=== PATIENT | male | born 1935 | race Hispanic/Latino ===

== ENCOUNTER 2017-06-03 19:52 | Inpatient (IN) | payer MEDICARE, BC ==
[2017-06-03] MEDS ORDERED: TDAP Vaccine 0.5 mL Syr IM ONE (20:10)
--- NOTE | 2017-06-03 20:27 | ED PDOC ---
Arrival/HPI <Rogelio Biggs - Last Filed: 06/03/17 23:10> <Aislinn Galvez - Last Filed: 06/04/17 00:01> - General Chief Complaint: Trauma Time Seen by Provider: 06/03/17 19:54 - History of Present Illness Narrative History of Present Illness (Text): 06/03/17 20:20 CC: Fall at home PMD: Dr. Joy This patient is an 82yo M w/ a Past medical history of hypertension, hyperlipidemia, diabetes not on insulin, CAD s/p 2 stents 15 years ago who fell at home earlier today. He states he was bringing his newspapers to the curb, one of the papers fell beneath his feet which caused him to sleep down 3-4 stairs. He states he fell forward, caught himself with his left hand, hurt this thumb, and slid foward and hit his head as well. Denies any loss of consciousness. Denies any chest pain, palpitations, shortness of breath during incident. Remembers the entire event. Is ANOx3 GCS15 and appropriately answering questions. states he is at mental baseline and does not seem any different. Denies feeling sick before event. Denies fevers/chills, headache, chest pain, changes in vision, changes in speech, chest pain, shortness of breath, abdominal pain, Nausea, vomiting, diarrhea, dysuria/freq/urg, or lower extremity pain/swelling. Meds: Glipizide, simvastatin, losartan, aspirin 81mg Allergies: denies Surgeries: Stent placement 15 years ago; [facility] FamHx: non applicable Social: lives at home with , fully independent IADL and ADL, walks without walker, denies smoking/EtOH (Rogelio Biggs) Past Medical History - Infectious Disease Hx of Infectious Diseases: None - Cardiac Hx Cardiac Disorders: Yes Other/Comment: stents - Pulmonary Hx Respiratory Disorders: No - Neurological Hx Neurological Disorder: Yes Hx Transient Ischemic Attacks (TIA): Yes - HEENT Hx HEENT Disorder: No - Renal Hx Renal Disorder: No - Endocrine/Metabolic Hx Endocrine Disorders: Yes Hx Diabetes Mellitus Type 2: Yes - Hematological/Oncological Hx Blood Disorders: No - Integumentary Hx Dermatological Disorder: No - Musculoskeletal/Rheumatological Hx Musculoskeletal Disorders: No - Gastrointestinal Hx Gastrointestinal Disorders: No - Genitourinary/Gynecological Hx Genitourinary Disorders: No - Psychiatric Hx Psychophysiologic Disorder: No Hx Substance Use: No - Surgical History Other/Comment: prostate surgery,. cardiact sents - Anesthesia Hx Anesthesia: Yes Hx Anesthesia Reactions: No <Rogelio Biggs - Last Filed: 06/03/17 23:10> Family/Social History - Physician Review Nursing Documentation Reviewed: Yes Family/Social History: Diabetes, Hypertension, CAD/LA Smoking Status: Never Smoked Hx Alcohol Use: No Hx Substance Use: No <Rogelio Biggs - Last Filed: 06/03/17 23:10> Allergies/Home Meds <Rogelio Biggs - Last Filed: 06/03/17 23:10> <Aislinn Galvez - Last Filed: 06/04/17 00:01> Allergies/Adverse Reactions: Allergies No Known Allergies Allergy (Verified 06/03/17 19:57) Home Medications: Home Meds Medication Instructions Recorded Confirmed Aspirin [Adult Low Dose Aspirin EC] 81 mg PO DAILY 06/03/17 06/03/17 GlipiZIDE [Glucotrol] 2.5 mg PO DAILY 06/03/17 06/03/17 Metoprolol Succinate XL [Toprol XL] 50 mg PO DAILY 06/03/17 06/03/17 Simvastatin [Zocor] 40 mg PO DAILY 06/03/17 06/03/17 Valsartan [Diovan] 80 mg PO DAILY 06/03/17 06/03/17 Review of Systems - Review of Systems Constitutional: absent: Fatigue, Weight Change Eyes: absent: Vision Changes, Photophobia ENT: absent: Hearing Changes, Tinnitus Respiratory: absent: SOB, Cough Cardiovascular: absent: Chest Pain, Palpitations Gastrointestinal: absent: Abdominal Pain Genitourinary Male: absent: Dysuria, Frequency, Hematuria Musculoskeletal: absent: Arthralgias, Back Pain Skin: absent: Rash, Pruritis Neurological: Headache. absent: Dizziness, Focal Weakness, Gait Changes, Speech Changes, Facial Droop, Disequilibrium, Seizure Endocrine: absent: Diaphoresis Hemo/Lymphatic: absent: Adenopathy, Easy Bleeding Psychiatric: absent: Anxiety, Depression <Rogelio Biggs - Last Filed: 06/03/17 23:10> Physical Exam Temperature: Afebrile Blood Pressure: Normal Pulse: Regular Appearance: Positive for: Non-Toxic (patient has blood coming from head/nose, blood all over shirt from fall) Mental Status: Positive for: Alert and Oriented X 3 - Systems Exam Head: Present: Normocephalic, Abrasion (right above eye abrasion, no laceration) Pupils: Present: PERRL Extroacular Muscles: Present: EOMI. No: Gaze Palsy, Entrapment Conjunctiva: Present: Normal. No: Injected Mouth: Present: Moist Mucous Membranes. No: Dry Pharnyx: Present: Normal. No: ERYTHEMA, EXUDATE Nose (External): Present: Abrasion. No: Laceration Respiratory/Chest: Present: Clear to Auscultation, Good Air Exchange. No: Respiratory Distress, Accessory Muscle Use Cardiovascular: Present: Regular Rate and Rhythm, Normal S1, S2 Abdomen: Present: Normal Bowel Sounds. No: Tenderness, Distention, Peritoneal Signs Back: Present: Normal Inspection. No: CVA Tenderness Upper Extremity: Present: Normal Inspection. No: Cyanosis, Edema Lower Extremity: Present: Normal Inspection. No: Edema Neurological: Present: GCS=15, CN II-XII Intact, Speech Normal Skin: Present: Warm Psychiatric: Present: Alert, Oriented x 3, Normal Insight, Normal Concentration <Rogelio Biggs - Last Filed: 06/03/17 23:10> Vital Signs Temp Pulse Resp BP Pulse Ox 06/03/17 20:00 97.6 F 79 19 115/74 96 Medical Decision Making <Rogelio Biggs - Last Filed: 06/03/17 23:10> <Aislinn Galvez - Last Filed: 06/04/17 00:01> ED Course and Treatment: 06/03/17 20:31 DD; Subdural hematoma vs arrythmia vs LA vs mechanical fall Plan: Head CT, clean patient/bacitracin, ANDRAE, CBC, CMP, Mag/Phos, EKG Give Tdap EKG shows 2nd degree AV block w/ PVC interpreted by me; uknown baseline Peaked T waves Patient is resting comfortably with VSS 100% O2 Dispo and Reassess 06/03/17 20:33 Anemia 12.3 noted on CBC; no rectal bleeding; denies blood per rectum as well; no known hx of bleeding BUN elevated at 22 -enlarged heart on chest x-ray; however portable x-ray not the best to senior loan officer -no sign of infiltrate -troponin negative -CMP WNL 06/03/17 21:[address] shows: 1. Tiny foci of intracranial gas are identified, consistent with pneumocephalus. 2. There is soft tissue swelling/hematoma of the right frontal scalp and periorbital region. 3. Within the medial right frontal lobe, there is a 0.9 x 0.6 cm hyperdense focus of hemorrhage or contusion. A small additional contusion is seen within the inferior right frontal lobe. 4. There is a small focus of extra-axial hemorrhage within the anterior right temporal convexity. Minimal additional subdural hemorrhage is seen in this region. A follow-up CT in 12-24 hours is recommended. 5. There is a probable fracture of the greater wing of the right sphenoid bone. 6. Multiple foci of gas are seen within the facial soft tissues. Paranasal sinus disease is noted above. There is increased density within the bilateral maxillary sinuses, concerning for hemorrhage. There are probable fractures of the maxillary sinus berger. A facial CT is recommended. 7. There are scattered foci of hypodensity within the cerebral white matter, likely representing small vessel ischemic disease in a patient this age. 8. Atrophy. Will Call neurosurgery configuration release manager Dr. Cook Will call ENT for facial fractures Dr. Sampson Will call Neurology Dr. Escobar Negrete Will order maxillofacial CT to examine facial CT Dr. Bhakta evaluated the patient for admission to the ICU which he accepted 06/03/17 23:15 (Rogelio Biggs) Patient Seen With Resident: In agreement with resident note which contains more details about the patient. Patient was seen and evaluated with resident. Came up with plan and treatment together. (Aislinn Galvez) - Lab Interpretations Lab Results: 06/03/17 20:32 06/03/17 20:32 Lab Results 06/03/17 20:32: Sodium 136, Potassium 4.4, Chloride 102, Carbon Dioxide 25, Anion Gap 13, BUN 22 H, Creatinine 1.0, Est GFR ( Amer) > 60, Est GFR ( Non-Af Amer) > 60, Random Glucose 257 H, Calcium 8.8, Phosphorus 3.1, Magnesium 2.0, Total Bilirubin 0.6, AST 30, ALT 41, Alkaline Phosphatase 70, Total Creatine Kinase 79, Troponin I < 0.01, Total Protein 6.8, Albumin 3.8, Globulin 3.1, Albumin/Globulin Ratio 1.2 06/03/17 20:32: WBC 6.3, RBC 4.34, Hgb 12.6 L, Hct 37.9 L, MCV 87.3, MCH 29.0, MCHC 33.2, RDW 13.9, Plt Count 175, MPV 10.8, Gran % 59.8, Lymph % (Auto) 29.2, [place] % (Auto) 6.7 H, Eos % (Auto) 3.5, Baso % (Auto) 0.8, Gran # 3.74, Lymph # 1.8, [place] # 0.4, Eos # 0.2, Baso # 0.05 - RAD Interpretation Radiology Orders: 06/03/17 20:07 HEAD W/O CONTRAST [CT] Stat 06/03/17 20:27 CHEST PORTABLE [RAD] Stat 06/03/17 23:10 MAXILLOFACIAL W/O CONTRAST [CT] Stat 06/04/17 11:00 HEAD W/O CONTRAST [CT] Stat - Medication Orders Current Medication Orders: Discontinued Medications Bacitracin (Bacitracin) 1 ea TOP ONCE ONE Stop: 06/03/17 21:09 Tetanus/Reduced Diphtheria/Acell Pertussis (Boostrix Vaccine Inj) 0.5 ml IM .ONCE ONE Stop: 06/03/17 20:11 Last Admin: 06/03/17 20:22 Dose: 0.5 ml [facility] Immunization Data Document 06/03/17 20:22 OCS (Rec: 06/03/17 20:22 OCS [id number]) Immunization Data Vaccine Lot Number [id number] Vaccine Expiration Date 07/09/19 Site Given Left Deltoid Route Intramuscular NIHSS Scale ([place]) Time Performed: 20:31 - How Severe is the Stoke Baseline Level of Consciousness: 0=Alert LOC to Questions: 0=Both comments correct LOC to commands: 0=Obeys both correctly Best Gaze: 0=Normal Visual: 0=No visual loss Facial: 0=Normal Motor Arm - Left: 0=No drift Motor Arm - Right: 0=No drift Motor Leg - Left: 0=No drift Motor Leg - Right: 0=No drift Limb Ataxia: 0=Absent Sensory: 0=Normal Best Language: 0=No aphasia Dysarthia: 0=Normal articulation Extinction & Inattention (Neglect): 0=Normal, no object Score: 0 Risk Level: No Stroke Risk <Rogelio Biggs - Last Filed: 06/03/17 23:10> Disposition/Present on Arrival - Present on Arrival Any Indicators Present on Arrival: Yes History of DVT/PE: No History of Uncontrolled Diabetes: No Urinary Catheter: No History of Decub. Ulcer: No History Surgical Site Infection Following: None - Disposition Have Diagnosis and Disposition been Completed?: Yes Disposition Time: 23:17 Patient Plan: ICU <Rogelio Biggs - Last Filed: 06/03/17 23:10> - Present on Arrival Any Indicators Present on Arrival: No - Disposition Have Diagnosis and Disposition been Completed?: Yes <Aislinn Galvez - Last Filed: 06/04/17 00:01> - Disposition Diagnosis: Subdural hematoma Disposition: HOSPITALIZED Patient Problems: Current Active Problems Problem Status Onset Subdural hematoma Acute Condition: FAIR Referrals: Dion Joy MD [Primary Care Provider] - Follow up with primary Forms: [employer] (Greek)
[2017-06-03 20:46] LABS: BASO # 0.05 K/mm3 (0.0-2.0); BASO % 0.8 % (0.0-3.0); EOS # 0.2 (0.0-0.7); EOS % 3.5 % (1.5-5.0); GRAN # 3.74 (1.4-6.5); GRAN % 59.8 % (50.0-68.0); HEMATOCRIT 37.9 % (42.0-52.0); LYMPH # 1.8 (1.2-3.4); LYMPH % 29.2 % (22.0-35.0); MEAN CELL VOLUME 87.3 fl (80.0-105.0); MEAN CORPUSCULAR HGB CONC 33.2 g/dl (31.0-37.0); MEAN PLATELET VOLUME 10.8 fl (7.0-11.0); MONO # 0.4 (0.1-0.6); MONO % 6.7 % (1.0-6.0); RED CELL DISTRIBUTION WIDTH 13.9 % (11.5-14.5); WHITE BLOOD COUNT 6.3 10^3/ul (4.5-11.0)
[2017-06-03 20:51] LABS: ALB/GLOB RATIO 1.2 (1.1-1.8); ALKALINE PHOSPHATASE 70 U/L (38-126); ALT/SGPT 41 U/L (7-56); AST/SGOT 30 U/L (17-59); BILIRUBIN,TOTAL 0.6 mg/dL (0.2-1.3); BLOOD UREA NITROGEN 22 mg/dL (7-21); CALCIUM 8.8 mg/dL (8.4-10.5); CARBON DIOXIDE 25 mmol/L (21-33); GFR AFRICAN-AMERICAN > 60; GLUCOSE,RANDOM 257 mg/dL (70-110); PHOSPHOROUS 3.1 mg/dL (2.5-4.5); POTASSIUM 4.4 mmol/L (3.6-5.0); SODIUM 136 mmol/L (132-148); TOTAL PROTEIN 6.8 g/dL (5.8-8.3)
[2017-06-03 20:52] LABS: CHLORIDE 102 mmol/L (98-107)
[2017-06-03 21:02] LABS: TROPONIN I < 0.01 ng/mL
[2017-06-03] MEDS ORDERED: Bacitracin 500 Units/gm Oint Foilpak UD TOP ONE (21:08)
--- NOTE | 2017-06-03 22:59 | CT ---
EXAM: CT Head Without Intravenous Contrast EXAM DATE/TIME: 06/03/2017 8:07 PM CLINICAL HISTORY: The patient age is 82 years old and is male; Injury or trauma; Fall; Initial encounter; Concussion / head injury Facility exam id and description: Ct heads head w/o contrast TECHNIQUE: Axial computed tomography images of the head/brain without intravenous contrast. All CT scans at this facility use one or more dose reduction techniques, viz.: automated exposure control; ma/kV adjustment per patient size (including targeted exams where dose is matched to indication; i.e. head); or iterative reconstruction technique. COMPARISON: No relevant prior studies available. FINDINGS: Brain: Tiny foci of intracranial gas are identified, consistent with pneumocephalus. Within the medial right frontal lobe on series 2 image 30, there is a 0.9 x 0.6 cm hyperdense focus of hemorrhage or contusion. A small additional contusion is seen within the inferior right frontal lobe. There is a small focus of extra-axial hemorrhage within the anterior right temporal convexity. Minimal additional subdural hemorrhage is seen in this region. There are scattered foci of hypodensity within the cerebral white matter, likely representing small vessel ischemic disease in a patient this age. The acuity of the white matter disease is indeterminate. The white-kuo differentiation is preserved demonstrating no acute territorial type infarct. There are calcifications within the globus pallidus bilaterally, which are likely physiologic. There is prominence of the ventricles and sulci, compatible with atrophy. Midline shift: There is no midline shift. Ventricles: See above. Bones/joints: There is a probable fracture of the greater wing of the right sphenoid bone. Soft tissues: There is soft tissue swelling/hematoma of the right frontal scalp and periorbital region. Multiple foci of gas are seen within the facial soft tissues. Vasculature: There is atherosclerotic calcification of the cavernous internal carotid arteries and distal right vertebral artery. Sinuses: Air-fluid levels are identified within the bilateral maxillary sinuses, with fractures. There is opacification of the frontal sinuses left ethmoid air cells. Mucosal thickening is identified of right ethmoid air cells. Air-fluid levels are seen in the left sphenoid sinus. Mucosal thickening with a mucous retention cyst or polyp is visualized within the right sphenoid sinus. There is increased density within the bilateral maxillary sinuses, concerning for hemorrhage. Mastoid air cells: No mastoid effusion. IMPRESSION: 1. Tiny foci of intracranial gas are identified, consistent with pneumocephalus. 2. There is soft tissue swelling/hematoma of the right frontal scalp and periorbital region. 3. Within the medial right frontal lobe, there is a 0.9 x 0.6 cm hyperdense focus of hemorrhage or contusion. A small additional contusion is seen within the inferior right frontal lobe. 4. There is a small focus of extra-axial hemorrhage within the anterior right temporal convexity. Minimal additional subdural hemorrhage is seen in this region. A follow-up CT in 12-24 hours is recommended. 5. There is a probable fracture of the greater wing of the right sphenoid bone. 6. Multiple foci of gas are seen within the facial soft tissues. Paranasal sinus disease is noted above. There is increased density within the bilateral maxillary sinuses, concerning for hemorrhage. There are probable fractures of the maxillary sinus berger. A facial CT is recommended. 7. There are scattered foci of hypodensity within the cerebral white matter, likely representing small vessel ischemic disease in a patient this age. 8. Atrophy.
[2017-06-04 00:25] LABS: URINE BILIRUBIN NEGATIVE (NEGATIVE); URINE BLOOD TRACE-INTACT (NEGATIVE); URINE GLUCOSE (UA) >=1000 mg/dL (NEGATIVE); URINE KETONE TRACE mg/dL (NEGATIVE); URINE LEUKOCYTE ESTERASE NEGATIVE Leu/uL (NEGATIVE); URINE PROTEIN TRACE mg/dL (<30 mg/dL); URINE UROBILINOGEN 0.2 E.U./dL (<1 E.U./dL)
[2017-06-04 00:40] LABS: URINE APPEARANCE CLEAR (CLEAR); URINE COLOR STRAW (YELLOW)
[2017-06-04] MEDS ORDERED: Morphine 2 mg/ml ISec IVP STA (00:43)
[2017-06-04 00:54] LABS: URINE EPITHELIAL CELLS 0 - 2 /hpf (0-5); URINE RBC 0 - 2 /hpf (0-2); URINE WBC 0 - 2 /hpf (0-6)
--- NOTE | 2017-06-04 02:17 | CT ---
EXAM: CT Maxillofacial Without Intravenous Contrast EXAM DATE/TIME: 06/03/2017 11:10 PM CLINICAL HISTORY: The patient age is 82 years old and is male; Injury or trauma; Fall; Initial encounter; Concussion /head injury; Loss of consciousness not known; Additional info: Facial fractures Facility exam id and description: Ct faces maxillofacial w/o contrast TECHNIQUE: Axial computed tomography images of the face without intravenous contrast. All CT scans at this facility use one or more dose reduction techniques, viz.: automated exposure control; ma/kV adjustment per patient size (including targeted exams where dose is matched to indication; i.e. head); or iterative reconstruction technique. Coronal and sagittal reformatted images were created and reviewed. COMPARISON: CT - HEAD W/O CONTRAST 2017-06-03 21:58 FINDINGS: Bones/joints: Air-fluid levels are identified within the bilateral maxillary sinuses. There is increased density of the fluid, consistent with hemorrhage. Fractures are identified of the anterior, inferior, and posterior berger of the bilateral maxillary sinuses. There is a fracture of the superior right orbit with a probable small herniation of CSF fluid through this defect. There is a fracture of the right temporal bone, with a probable fracture of the greater wing of the right sphenoid bone. There is a small amount of extra-axial hemorrhage adjacent to this fracture. There is a fracture of the left anterior nasal bone, with angulation of the nasal bridge. Fractures are identified of the bilateral inferior orbital berger. There is abnormal morphology and suspected fractures of the lateral orbital berger as well. The remaining visualized facial bones are intact. Soft tissues: There is soft tissue swelling/hematoma of the right frontal scalp, as well as the preseptal and periorbital region. Small foci of gas are seen within the facial soft tissues. Orbits: A tiny focus of gas is identified within the right orbit. See above. Sinuses: A mucous retention cyst or polyp is visualized within the right sphenoid sinus, with mucosal thickening of the left sphenoid sinus. There is opacification of the left frontal sinus and left ethmoid air cells. Mucosal thickening is identified in the right ethmoid air cells. Brain: There is a hyperdense contusion again visualized within the inferior right frontal lobe of the brain. There is minimal pneumocephalus. Nasopharynx: There is nasal septal deviation to the right. IMPRESSION: 1. Air-fluid levels are identified within the bilateral maxillary sinuses, with hemorrhage. Fractures are identified of the anterior, inferior, and posterior berger of the bilateral maxillary sinuses. 2. There is a fracture of the superior right orbit with a probable small herniation of CSF fluid through this defect. 3. There is a fracture of the right temporal bone, with a probable fracture of the greater wing of the right sphenoid bone. There is a small amount of extra-axial hemorrhage adjacent to this fracture. There is minimal pneumocephalus. 4. There is a fracture of the left anterior nasal bone, with angulation of the nasal bridge. 5. There is a hyperdense contusion again visualized within the inferior right frontal lobe of the brain. 6. There is soft tissue swelling/hematoma of the right frontal scalp, as well as the preseptal and periorbital region. Small foci of gas are seen within the facial soft tissues. 7. Fractures are identified of the bilateral inferior orbital berger. There is abnormal morphology and suspected fractures of the lateral orbital berger as well. A tiny focus of gas is identified within the right orbit. 8. Paranasal sinus disease is noted above.
[2017-06-04] MEDS: Insulin Lispro (humaLOG) LOW Coverage SC SCH ×3 (02:22→09:52)
[2017-06-04] MEDS ORDERED: Cefepime IV 2 gm in NS 2 GM/100 ML BAG IVPB SCH (02:50)
[2017-06-04] MEDS ORDERED: Vancomycin 1.5 GM in Sodium Chloride 0.9% 500 ML IVPB SCH (02:51)
[2017-06-04 03:07] VITALS: BMI 23.3
[2017-06-04] MEDS ORDERED: Nicardipine 20 MG/200 ML 20 MG/200 ML BAG IV PRN (05:33)
--- NOTE | 2017-06-04 06:44 | CP.PCM.CON ---
<Jesus Quach - Last Filed: 06/04/17 06:19> History of Present Illness - History of Present Illness History of Present Illness: ICU consult note for Dr. Cisse Consulted for: ICH s/p traumatic fall HPI: This is an 82 yo M with PMH of hypertension, hyperlipidemia, diabetes (not on insulin), and CAD s/p 2 stents (15 years ago) who presents to [facility] [place]/p traumatic fall down concrete steps at home. HPI/ROS provided by patient , who is AAOx3 despite injuries. As per pt and , he was trying to bring his paper and plastic recycling to the curb, and a piece of paper flew out of the can and landed under one of his feet, causing him to slip and fall down the stairs and onto his concrete car pad. He is unsure of total time down, but did require help from and neighbors to get up after the fall. Remembers events prior to and after the fall with clarity. Admits to headache and nausea , denies actual emesis. Denies chest pain, shortness of breath, vision changes , room-spinning, cough, loss of bowel/bladder control. All other ROS in 12- point system review negative. Of note, maxulofacial CT and Head CT notable for 0.9x0.6cm hemorrhage in the right frontal lobe, and numerous fractures including R-orbital fracture with suspect CSF herniation. ED spoke with the neurosurgeon, who stated no intervention indicated from his standpoint. ENT aware of patient as well. PMH: as above PSH: Stent placement 15 years ago FamHx: non applicable Social: lives at home with , fully independent IADL and ADL, walks without walker, denies smoking/EtOH PMD: Dr. Joy Review of Systems - Review of Systems All systems: reviewed and no additional remarkable complaints except (as pre HPI ) Past Patient History - Infectious Disease Hx of Infectious Diseases: None - Past Social History Smoking Status: Never Smoked - CARDIAC Hx Cardiac Disorders: Yes Other/Comment: stents - PULMONARY Hx Respiratory Disorders: No - NEUROLOGICAL Hx Neurological Disorder: Yes Hx Transient Ischemic Attacks (TIA): Yes - HEENT Hx HEENT Problems: No - RENAL Hx Chronic Kidney Disease: No - ENDOCRINE/METABOLIC Hx Endocrine Disorders: Yes Hx Diabetes Mellitus Type 2: Yes - HEMATOLOGICAL/ONCOLOGICAL Hx Blood Disorders: No - INTEGUMENTARY Hx Dermatological Problems: No - MUSCULOSKELETAL/RHEUMATOLOGICAL Hx Musculoskeletal Disorders: No Hx Falls: Yes - GASTROINTESTINAL Hx Gastrointestinal Disorders: No - GENITOURINARY/GYNECOLOGICAL Hx Genitourinary Disorders: No - PSYCHIATRIC Hx Psychophysiologic Disorder: No - SURGICAL HISTORY Other/Comment: prostate surgery,. cardiact sents - ANESTHESIA Hx Anesthesia: Yes Hx Anesthesia Reactions: No Meds Allergies/Adverse Reactions: Allergies Allergy/AdvReac Type Severity Reaction Status Date / Time No Known Allergies Allergy Verified 06/03/17 19:57 - Medications Medications: Current Medications Aspirin (Ecotrin) 81 mg PO DAILY DIANA Atorvastatin Calcium (Lipitor) 20 mg PO DIN DIANA Hydralazine HCl (Apresoline) 10 mg IVP Q6 PRN PRN Reason: SBP > 150 Last Admin: 06/04/17 02:11 Dose: 10 mg Cefepime HCl (Maxipime 2gm) 2 gm in 100 mls @ 100 mls/hr IVPB Q12H DIANA PRN Reason: Protocol Stop: 06/09/17 02:51 Last Admin: 06/04/17 04:22 Dose: 100 mls/hr Vancomycin HCl 1.5 gm/ Sodium (Chloride) 500 mls @ 170 mls/hr IVPB Q12H DIANA PRN Reason: Protocol Last Admin: 06/04/17 04:22 Dose: 170 mls/hr Nicardipine HCl (Cardene Iv Premix) 20 mg in 200 mls @ 50 mls/hr IV .Q4H PRN; Protocol; 5 MG/HR PRN Reason: TITRATE PER MD ORDER Last Admin: 06/04/17 05:46 Dose: 5 mg/hr, 50 mls/hr Insulin Human Lispro (Humalog Low) 0 units SC Q4H DIANA PRN Reason: Protocol Last Admin: 06/04/17 04:36 Dose: 2 units Losartan Potassium (Cozaar) 50 mg PO DAILY DIANA Metoprolol Succinate (Toprol Xl) 50 mg PO DAILY DIANA Ondansetron HCl (Zofran Inj) 4 mg IVP Q4H PRN PRN Reason: Nausea/Vomiting Last Admin: 06/04/17 02:13 Dose: 4 mg Physical Exam - Constitutional Appears: Non-toxic, No Acute Distress, Other (multitude of bleeding abrassions across body) - Head Exam Head Exam: absent: ATRAUMATIC, NORMAL INSPECTION, NORMOCEPHALIC Additional comments: Abrasion, swollen R eyelid - Eye Exam Eye Exam: EOMI, Periorbital swelling (R eye), PERRL. absent: Conjunctival injection, Normal appearance, Nystagmus, Scleral icterus Pupil Exam: NORMAL ACCOMODATION, PERRL. absent: Irregular, Unequal - ENT Exam ENT Exam: Mucous Membranes Moist - Neck Exam Neck exam: Negative for: Lymphadenopathy, Thyromegaly - Respiratory Exam Respiratory Exam: Clear to Auscultation Bilateral, NORMAL BREATHING PATTERN. absent: Chest Wall Tenderness, Decreased Breath Sounds, Rales, Rhonchi, Wheezes - Cardiovascular Exam Cardiovascular Exam: REGULAR RHYTHM, RRR, +S1, +S2. absent: Bradycardia, Tachycardia, Irregular Rhythm, JVD, +S4 - GI/Abdominal Exam GI & Abdominal Exam: Normal Bowel Sounds, Soft. absent: Diminished Bowel Sounds , Distended, Firm, Guarding, Hyperactive Bowel Sounds, Hypoactive Bowel Sounds, Rigid - Extremities Exam Extremities exam: Positive for: normal capillary refill, pedal pulses present (+ 2 dorsalis pedis and radials bilaterally). Negative for: calf tenderness, pedal edema - Neurological Exam Neurological exam: Alert, CN II-XII Intact, Oriented x3 - Psychiatric Exam Psychiatric exam: Normal Affect, Normal Mood - Skin Skin Exam: Dry, Normal Color Results - Vital Signs Recent Vital Signs: Last Vital Signs Temp 9706 F H 06/04/17 02:24 Pulse 94 H 06/04/17 05:46 Resp 21 06/04/17 02:24 BP 147/67 06/04/17 05:46 Pulse Ox 96 06/03/17 20:00 - Labs Result Diagrams: 06/03/17 20:32 06/03/17 20:32 Labs: Laboratory Results - last 24 hr 06/04/17 02:20 POC Glucose (mg/dL) 302 H Assessment & Plan - Assessment and Plan (Free Text) Assessment: This is an 82 yo M with PMH of hypertension, hyperlipidemia, diabetes (not on insulin), and CAD s/p 2 stents (15 years ago) who presents to [facility] [place]/p traumatic fall down concrete steps at home. He is being admitted to ICU for close monitoring in setting of traumatic ICH from mechanical fall. Plan: Neuro: -AAOx3, following all commands -likely concussion from falls, but no clear neuro deficit -CT head notable for 0.9x0.6cm R frontal lobe hemorrhage, NTD as per Neurosurg -strict BP control (SBP 120-130) to prevent worsening bleed -Neuro (Dr. Negrete) consulted, appreciate all recs -ENT consulted for facial fractures -Neuro checks q1 x4, q2x4, then q4 -Meningitis ppx with Vanco and Cefepime due to orbital fx with possible CSF herniation Pulm: -Satting well on room air on 98% -lungs clear on auscultation -no need for supplemental O2 at this time Cardio -Hx cardiac stents 15 yrs prior -continue home cardiac meds, hold ASA due to ICH -Cardine drip for SBP control, HDS, not michelle or tachycardic GI: -NPO -Protonix for GI ppx Renal: -strict I's and O's -replete electrolyes as needed -avoid nephrotoxic drugs Heme: -hgb 12.6, f/u repeat CBC -avoid AC in setting of ICH, SCDs for DVT ID: -Meningitis ppx with Vanco and Cefepime due to orbital fx with possible CSF herniation Dispo: ICU for close monitoring given ICH, pending Neuro and ENT input FEN: NPO Access: Peripheral IV Consults: Neuro, ENT, Neurosurg Ppx: SCDs for DVT, Protonix for GI Patient seen, reviewed, and discussed with attending, Dr. Cisse. <Hunter Cisse Q - Last Filed: 06/04/17 07:02> Meds - Medications Medications: Current Medications Atorvastatin Calcium (Lipitor) 20 mg PO DIN DIANA Hydralazine HCl (Apresoline) 10 mg IVP Q6 PRN PRN Reason: SBP > 150 Last Admin: 06/04/17 02:11 Dose: 10 mg Cefepime HCl (Maxipime 2gm) 2 gm in 100 mls @ 100 mls/hr IVPB Q12H DIANA PRN Reason: Protocol Stop: 06/09/17 02:51 Last Admin: 06/04/17 04:22 Dose: 100 mls/hr Vancomycin HCl 1.5 gm/ Sodium (Chloride) 500 mls @ 170 mls/hr IVPB Q12H DIANA PRN Reason: Protocol Last Admin: 06/04/17 04:22 Dose: 170 mls/hr Nicardipine HCl (Cardene Iv Premix) 20 mg in 200 mls @ 50 mls/hr IV .Q4H PRN; Protocol; 5 MG/HR PRN Reason: TITRATE PER MD ORDER Last Admin: 06/04/17 05:46 Dose: 5 mg/hr, 50 mls/hr Insulin Human Lispro (Humalog Low) 0 units SC Q4H DIANA PRN Reason: Protocol Last Admin: 06/04/17 04:36 Dose: 2 units Losartan Potassium (Cozaar) 50 mg PO DAILY DIANA Metoprolol Succinate (Toprol Xl) 50 mg PO DAILY DIANA Ondansetron HCl (Zofran Inj) 4 mg IVP Q4H PRN PRN Reason: Nausea/Vomiting Last Admin: 06/04/17 02:13 Dose: 4 mg Results - Vital Signs Recent Vital Signs: Last Vital Signs Temp 9706 F H 06/04/17 02:24 Pulse 94 H 06/04/17 05:46 Resp 21 06/04/17 02:24 BP 147/67 06/04/17 05:46 Pulse Ox 96 06/03/17 20:00 - Labs Result Diagrams: 06/03/17 20:32 06/03/17 20:32 Labs: Laboratory Results - last 24 hr 06/04/17 02:20 POC Glucose (mg/dL) 302 H Attending/Attestation - Attestation I have personally seen and examined this patient.: Yes I have fully participated in the care of the patient.: Yes I have reviewed all pertinent clinical information: Yes Notes (Text): 06/04/17 06:59 I agree with the above note and exam by the medical pathology teacher with the addition/ exception of the followin82 y/o male with a PMHx CAD, Htn, DM, TIA (20yrs ago) presented to the ED after what appeared to be a mechanical slip and fall. Patient sustained multiple abrasions on his extremities along with a possible contusion vs intraparenchymal frontal lobe hemorrhage (no significant swelling/edema/mass effect or shift). He also has multiple orbital and maxillary fractures along with possible CSF herniation through the right orbital fracture. Neurosurgery contacted by the ED who reported there was no neurosurgical intervention required at this time. ENT consulted as well for extensive orbital/maxillary fractures. Pt started on empiric antibiotic prophylaxis with Vanco/Cefepime for CSF herniation. case discussed at length with Dr. Ahmadi in the ED as well as Dr. Dubon ( radiologist) all labs and images available to myself reviewed thus far total time of care: 40 minutes
--- NOTE | 2017-06-04 08:15 | RAD ---
HISTORY: fall COMPARISON: No prior. FINDINGS: LUNGS: No active pulmonary disease. PLEURA: No significant pleural effusion identified, no pneumothorax apparent. CARDIOVASCULAR: Normal. OSSEOUS STRUCTURES: No significant abnormalities. VISUALIZED UPPER ABDOMEN: Normal. OTHER FINDINGS: None. IMPRESSION: No active disease.
--- NOTE | 2017-06-04 09:34 | CT ---
PROCEDURE: CT HEAD WITHOUT CONTRAST. HISTORY: brain bleed COMPARISON: Head CT without contrast 06/07/2017. TECHNIQUE: Axial computed tomography images were obtained through the head/brain without intravenous contrast. Radiation dose: Total exam DLP = 678.13 mGy-cm. This CT exam was performed using one or more of the following dose reduction techniques: Automated exposure control, adjustment of the mA and/or kV according to patient size, and/or use of iterative reconstruction technique. FINDINGS: HEMORRHAGE: Small referral contusions are stable including 1 cm medial right frontal subcortical contusion and a separate 8 mm contusion at the right frontal lobe more lateral inferiorly with no additional intraparenchymal hemorrhage identified. There is no mass effect. BRAIN: Diffuse cerebral atrophy chronic microangiopathy are reiterated. No cortical edema in the interval. No suspicious extra-axial fluid collection. Sulci and cisterns appear normal throughout. Prior right middle cranial fossa pneumocephalus is diminished with trace residual adjacent to or fracture of the right temporal bone laterally. VENTRICLES: Unremarkable. No hydrocephalus. CALVARIUM: Unremarkable. PARANASAL SINUSES: Extensive bifrontal, by ethmoid and bimaxillary sinusitis again evident, minimally involving the left sphenoid sinus. MASTOID AIR CELLS: Unremarkable as visualized. No inflammatory changes. OTHER FINDINGS: None. IMPRESSION: Stable head CT with 2 right frontal contusions unchanged in volume remaining 1 cm or smaller in size as described above. No new intracranial hemorrhage. Right temporal bone fracture again appreciated nondisplaced which trace pneumocephalus related. Pneumocephalus is diminishing. Multifocal sinusitis again appreciated. Continued clinical and CT monitoring are advised. Findings discussed with Nurse Michel at the ICU 06/04/2017 9:20 a.m. with written down and read back verification.
[2017-06-04] MEDS: Metoprolol Succinate 50 mg XL Tab PO SCH (09:48)
--- NOTE | 2017-06-04 10:56 | CARD ---
APPROVED REPORT EKG Measurement Heart [id number] <Conclusion> Sinus rhythm with 1st degree AV block with premature supraventricular complexes Left axis deviation Voltage criteria for left ventricular hypertrophy
[2017-06-04] MEDS: Insulin Reg-HIGH-Coverage SC SCH ×6 (12:06→22:27)
--- NOTE | 2017-06-04 16:04 | CON ---
DATE: 06/04/2017 HISTORY OF PRESENT ILLNESS: This is an 82-year-old gentleman with history of hypertension, hyperlipidemia, diabetes, and coronary artery disease, status post 2 stents 15 years ago, who slipped and fell down concrete steps at home. The patient did not loose any consciousness; however, he hit his head very hard. He did require help to getup after the fall. He remembers events prior and after the fall with clarity. Some headaches and nausea reported. No vomiting. No chest pain. No shortness of breath. No vision changes. No cough. Head CT showed tiny foci of intracranial gas consistent with pneumocephalus, soft tissue swelling, and hematoma of the right frontal scalp and periorbital region. Within the medial right frontal lobe, there is 0.9 x 0.6 hyperdense focus of hemorrhage or contusion. Small additional contusion is seen within the inferior right frontal lobe. There is small focus of extra-axial hemorrhage within the anterior right temporal convexity. There is probable fracture of the greater wing of the right sphenoid bone, multiple foci of gas are seen within the facial soft tissues, and paranasal sinus disease is noted. There is increased density within the bilateral maxillary sinuses concerning for hemorrhage. There are probable fractures of the maxillary sinus berger. A facial CT was recommended and done. There are scattered foci of hypodensity within the cerebral white matter likely representing small vessel ischemic disease in a patient this age. Maxillofacial CAT scan showed air fluid levels within the bilateral maxillary sinuses with hemorrhage, fractures are identified of the anterior, inferior, and posterior berger of the bilateral maxillary sinuses. There is a fracture of the superior right orbit with a probable small herniation of CSF fluid through this defect. There is a fracture of the right temporal bone with a probable fracture of the greater wing of the right sphenoid bone. There is small amount of extra-axial hemorrhage adjacent to the fracture. There is minimal pneumocephalus. There is a fracture of the left anterior nasal bone with angulation of the nasal bridge. There is a hyperdense contusion again visualized within the inferior right frontal lobe of the brain. There is soft tissue swelling, hematoma of the right frontal skull as well as preseptal and periorbital regions. Small foci of gas are seen within the facial soft tissues. Fractures are identified of the bilateral inferior orbital berger. There is abnormal morphology and suspected fractures of the lateral orbital berger as well. A tiny focus of gas is identified within the right orbit. Paranasal sinus disease is noted. Chest x-ray showed no active pulmonary disease, no rib fractures. PAST MEDICAL HISTORY: Hypertension, hyperlipidemia, diabetes; not insulin-dependent, and coronary artery disease. PAST SURGICAL HISTORY: Stent placed 15 years ago. FAMILY HISTORY: Noncontributory. SOCIAL HISTORY: No alcohol or illicit drug abuse. No tobacco smoking. REVIEW OF SYSTEMS: Review of 12-organ systems other than mentioned in the history of present illness is negative. PHYSICAL EXAMINATION: VITAL SIGNS: Blood pressure 126/52, heart rate 104, oxygen saturation 96% on room air, and respiratory rate 15. HEENT: There is ecchymosis bilaterally around both eyes. There is scalp hematoma on the right side. No tracheal deviation. Nasal fracture corresponding to significant findings. HEART: Regular rate and rhythm. S1 and S2 normal. LUNGS: Clear to auscultation bilaterally. No tenderness on palpation. ABDOMEN: Soft, nontender, and nondistended. MUSCULOSKELETAL: No C/C/E. NEUROLOGIC: The patient moves all extremities spontaneously. Motor strength 5/5 in both upper and lower extremities symmetrically. There is no sensory deficit on gross evaluation. There is no sensory deficit in the face area. The patient is able to smile without asymmetry. The patient is able to shrug his shoulders without problem as well. Pupils equally reactive to light and accommodation. There is no limitation of visual jones on gross examination. The patient is able to raise his brows and close and opens his eyes without problem. SKIN: Moist. PSYCHIATRIC: The is alert and oriented x3. The patient is comfortable, not in respiratory or otherwise distress. LABORATORY DATA: WBC is 6.3, hemoglobin 12.6, and platelet count 175. Sodium 136, potassium 4.4, chloride 102, carbon dioxide 25, BUN 22, creatinine 1, and glucose 307. AST 30 and ALT 41. Troponin less than 0.1. MEDICATIONS: Lipitor, hydralazine p.r.n., regular insulin sliding scale, low protocol, Cozaar, cefepime, metoprolol, Cardene drip, Zofran p.r.n., and vancomycin. ASSESSMENT AND PLAN: This is an 82-year-old gentleman with multiple fractures of the facial bones, brain contusion, and scalp hematoma. At present time, neurosurgical evaluation is appreciated. Repeated CT-->no changes ; d/w Dr. Ortiz (at bedside)--no Nsx intervention ENT and Ophthalmology consults are pending. Spoke with dr. Ellis (ophthalmo) notified about emergent consult. The visual acuity and visual jones does not appear to be affected at the present time. The patient is hemodynamically and respiratory sorto stable. He is able to protect his airways. He is not in respiratory or otherwise distress. His pain is well controlled. We will continue target euvolemia, euglycemia, normothermia, and oxygen saturations more than 90%. We will continue with deep venous thrombosis and gastrointestinal prophylaxis. Addendum: ENT consult: no immediate intervention. ccm time 40 min Tyler Kimble MD SALTY
--- NOTE | 2017-06-04 20:18 | CON ---
NEUROLOGY CONSULTATION DATE: REASON FOR CONSULTATION: Brain bleed. HISTORY OF PRESENT ILLNESS: The patient is an 82-year-old male, who has been asked for evaluation of brain hemorrhage. The patient states that he was bringing his newspapers to the curb; one of the papers fell beneath his feet and he slipped and fell 3 to 4 stairs. He did hit his head. He was not sure if he lost consciousness or not. He denies any focal weakness in arms or legs. He does remember hitting his head. He denies any focal weakness or numbness. He denies any urinary or bowel symptoms. Does complain of mild headache. REVIEW OF SYSTEMS: Positive for headache. He denies any dizziness, chest pain, shortness of breath, abdominal pain, constipation, diarrhea, dysuria, cough, sputum production. PAST MEDICAL HISTORY: Includes hypertension, hypercholesterolemia, diabetes mellitus, coronary artery disease. MEDICATIONS AT HOME: Include glipizide, simvastatin, losartan, and aspirin. ALLERGIES: NO KNOWN DRUG ALLERGIES. SOCIAL HISTORY: Denies smoking, use of alcohol or illicit drugs. FAMILY HISTORY: Reviewed and noncontributory to the case. PHYSICAL EXAMINATION: GENERAL: The patient is an elderly male, lying on the bed, in no acute distress. VITAL SIGNS: His blood pressure is 112/54, heart rate is 98 per minute, breathing at the rate of 16 per minute and temperature is 96 degree Fahrenheit. HEENT: Normocephalic. Positive periorbital ecchymosis noted bilaterally. NECK: Supple. There are no carotid bruits. LUNGS: Clear. CARDIOVASCULAR: S1 and S2, audible. No murmurs. ABDOMEN: Soft and nontender. Bowel sounds are present. NEUROLOGY EXAMINATION: Mental status. The patient is awake, alert and oriented to time, place and person. Speech is fluent. Naming and repetition is normal. Memory and cognition are intact. Cranial Nerve Examination: Pupils are 3 mm bilaterally, reactive to light. Visual jones are full. Extraocular movements are intact. There is no facial asymmetry. Motor Examination: Tone is normal. Power is 5/5 bilaterally in all extremities. Reflexes +1 and symmetrical. Plantars downgoing bilaterally. Gait is deferred at the moment. SKIN: Positive abrasions noted on the right knee as well as in the hands. LABORATORY DATA: Reviewed, shows WBC of 6.3, hemoglobin 12.6, hematocrit 37.9, and platelets of 175. Sodium is 136, potassium 4.4, chloride 102, carbon dioxide content of 25, BUN of 22, creatinine 1.0, and glucose of 275. He had a CT scan of the head done, which showed tiny focal intracranial gas are identified consistent with pneumocephalus. There is soft tissue swelling and hematoma of the right frontal scalp and periorbital region. Within the medial right frontal lobe, there is a 0.9 x 0.6 cm hyperdense focus of hemorrhage or contusion. Small additional contusion is seen within the inferior right frontal lobe. There is a small focus of extraaxial hemorrhage within the anterior right temporal convexity, minimal additional subdural hemorrhage is seen in the region. Probable fracture of the greater wing of the right sphenoid bone. Multiple foci of gas are seen within the focal soft tissue. The patient had a repeat CT scan of the head done today, which showed stable head CT with two right frontal contusion with unchanged volume, remaining 1 cm or smaller in size. No new intracranial hemorrhage. Right temporal bone fracture again appreciated, nondisplaced with trace pneumocephalus. Pneumocephalus is diminishing. The patient had a maxillofacial CT done, which showed air fluid levels within the bilateral maxillary sinuses with hemorrhage. Fracture of the superior right orbit with a probable small herniation CSF fluid through this defect, fracture of the right temporal bone, fracture of the left anterior nasal bone. IMPRESSION: Status post fall with head trauma causing brain contusions as well as basal skull fracture and orbital fracture. RECOMMENDATIONS: 1. The patient had a repeat CT scan, which seems to be stable. There is no increase in the size of the small brain contusion. 2. The patient to have an electroencephalogram. 3. The patient to be evaluated by ophthalmology as well as ENT or maxillofacial surgery. 4. The patient to get out of bed and start physical therapy as he tolerates. 5. Please continue other treatment and supportive care. Thank you for the opportunity to participate in the care of this patient. Escobar Negrete MD
--- NOTE | 2017-06-04 20:46 | HP ---
HISTORY OF PRESENT ILLNESS: This is an 82-year-old male who is coming into the hospital with the past medical history of hypertension, dyslipidemia, diabetes diet controlled, coronary artery disease, who had a fall. The patient states that he was taking garbage out and one of the papers fell beneath his feet causing him to slip then he fell down three to four stairs. He had caught himself with his left hand, while he was falling and he said he did hit his head. The patient said he did not lose any consciousness. He is awake and alert. He is aware of his surroundings. He knows where he is, he is knows the date, and the time. The patient says he does not have any headaches. His vision is normal. He does have some pain around the right side of his facial bone and his cheek. No abdominal pain or back pain. No dysuria or frequency. No weakness in the arms or legs. REVIEW OF SYSTEMS: All other review of symptoms are within normal limits except as mentioned. ALLERGIES: NO KNOWN DRUG ALLERGIES. HOME MEDICATIONS: Glipizide, simvastatin, losartan, and aspirin. PAST SURGICAL HISTORY: He had stents done by Dr. Nelson. FAMILY HISTORY: Noncontributory. SOCIAL HISTORY: He lives with his , he is fully independent. Denies any smoking or alcohol. PHYSICAL EXAMINATION VITAL SIGNS: He has a temperature of 97.8, pulse of 88, blood pressure 162/76 repeat is 147/67, respirations 21, O2 saturation is 98%, height 5 feet 11 inches, weight 167 pounds, and BMI is 23.4. GENERAL: The patient lying in bed, uncomfortable, and in no acute distress. HEENT: Atraumatic and normocephalic. There is trauma to the right greater than left orbital areas. There is ecchymosis. Anicteric sclerae. Moist mucosa. Earl conjunctivae. No oral lesions. NECK: No JVD, anterior and posterior adenopathy, thyromegaly, or bruits. CARDIOVASCULAR: S1 and S2 regular. No murmur, rubs, or gallop. LUNGS: Clear to auscultation bilaterally. No wheezes, rales, or rhonchi. ABDOMEN: Bowel sounds are positive. Soft, nontender and nondistended. No hepatosplenomegaly. No rebound and no guarding EXTREMITIES: No cyanosis, clubbing, or edema. NEUROLOGIC: No facial asymmetry. Tongue is midline. No uvula deviation. Power is 5/5 upper extremity and lower extremity. Sensation intact in upper extremity and lower extremity. PSYCHIATRIC: He is awake, alert and oriented x3. No anxiety or depression. He has normal affect. GENITOURINARY: No CVA tenderness. VASCULAR: 2+ pulses in the carotid pulses and pedal pulses. SKIN: No erythema or nodules. SPINE: Shows normal curvature. LABORATORY DATA: White count of 6.3, hemoglobin is 12.6. Chemistry showed a sodium of 136, potassium 4.4, troponin is 0.01. Urine shows ketones of trace, blood is trace, and nitrites are negative. CT of the head was reviewed. There are multiple abnormalities that are seen. The patient has swelling, hematoma of the right frontal scalp. There is hyperdense focus of hemorrhage or contusion, 0.9 x 0.6 cm. There is a probable fascia on the greater wing of the right sphenoid bone. Chest x-ray done shows no active disease. CT of the maxillofacial bone without contrast. Shows there is a fracture of the superior orbit with a probable small herniation of CSF fluid through this defect. There is a fracture of the left anterior nasal bone. Repeat CT does shows stable head CT with two right frontal contusion with unchanged in volume, and remaining 1 cm or smaller. There is multifocal sinusitis again appreciated. ASSESSMENT: 1. Fall. 2. Fracture of the right temporal bone. 3. Fracture of the right sphenoid bone. 4. Fracture of the left anterior nasal bone. 5. Right frontal scalp hematoma. 6. Coronary artery disease with stents. 7. Dyslipidemia. 8. Hypertension. 9. Diabetes type II. PLAN: The patient is admitted to the ICU. He has a significant fall. The patient had no loss of consciousness. He is going to need further evaluation by Ophthalmology, ENT, and Neurosurgery. We will also get Dr. Dennis, Neurology to evaluate the patient. The patient is going to be on Lipitor for dyslipidemia, is going to be on nicardipine for his hypertension. The patient is on Zofran as needed. He is on losartan for his hypertension as well. His aspirin will be placed on hold. He is going to continue with his metoprolol for his coronary artery disease. An MRI has been ordered. The patient currently does not have any significant pain. We will continue to follow closely. Eddie Cavanaugh MD
[2017-06-04] MEDS: Amoxicillin-Clav 875-125 mg Tab PO SCH (22:16)
[2017-06-05] MEDS: Insulin Reg-HIGH-Coverage SC SCH ×8 (02:45→22:43)
--- NOTE | 2017-06-05 04:48 | EEG ---
DATE: INTRODUCTION: This is a digitally recorded EEG monitoring using standard EEG montages. BACKGROUND RHYTHM: The EEG shows a background activity of 8 Hz alpha activity in parietooccipital region. The EEG activity is bilaterally symmetrical and synchronous. There is attenuation of the background activity on eye opening. Small amount of myogenic artifact notice from this EEG recording. ABNORMAL POTENTIALS: No spike, sharp waves or focal slowing was seen. PHOTIC STIMULATION AND HYPERVENTILATION: Photic stimulation did not reveal any abnormality. Hyperventilation was not performed. IMPRESSION: Normal electroencephalogram. No epileptic form activity seen in this electroencephalogram recording. Escobar Negrete MD
[2017-06-05] MEDS: Tropicamide 1% Opht SOLUTION OU SCH ×3 (05:46→07:55)
--- NOTE | 2017-06-05 07:18 | CON ---
DATE: 06/04/2017 EAR, NOSE, AND THROAT SERVICE CONSULTATION REASON FOR CONSULTATION: Multiple facial fractures. HISTORY OF PRESENT ILLNESS: The patient is an 82-year-old male with past medical history of hyperlipidemia, coronary artery disease, status post multiple stents and diabetes. Last night, he was carrying a stack of papers down his stairs when he tripped and had a mechanical fall. He struck the right side of his face on the concrete diamond during his fall. He was subsequently brought to [facility] where a CAT scan demonstrated multiple facial and right temporal bone fractures. Therefore, Ear, Nose and Throat Service was consulted for further evaluation. Upon questioning, patient denies other episodes of acute falls. He denies any diplopia or ophthalmoplegia. He denies any clear drainage from his ear or nose. He denies any epistaxis. Denies any changes in his nasal airway. Denies any changes in vision or hearing. He is able to move his face well, and otherwise, has no other ear, nose, throat complaints at this time. PAST MEDICAL HISTORY: As above. PAST SURGICAL HISTORY: Significant for prostatectomy and cholecystectomy. ALLERGIES: NO KNOWN DRUG ALLERGIES. PHYSICAL EXAMINATION: VITAL SIGNS: Blood pressure 130/70, heart rate 70, and saturating 99% on room air. GENERAL: The patient is awake and alert. He is oriented x3. He is in no acute distress. HEAD: There are abrasions to the right temporal and right frontal region which are covered with a dressing and Bacitracin ointment. There is ecchymosis to the right periorbital tissues. FACE: There are no bony step-offs at the infraorbital rim. There is a left nasal bone deviation. sensation is intact bilaterally. Zygomas are without bony step-offs bilaterally. Eyes; extraocular muscles are intact bilaterally. No entrapment noted on examination. Pupils are equal, round, and reactive to light. Visual field testing grossly normal. NOSE: No septal hematoma noted. Left septal deviation noted. EARS: Left ear external auricle within normal appearance. Right ear, no Hughes sign. No auricular hematoma. External auditory canal clear. No middle ear effusion or hematoma seen. Normal hearing to finger rub. ORAL CAVITY: No intraoral lacerations. No rocking of hard palate. Moist mucous membranes. NECK: Trachea midline. No stridor. IMAGING: CAT scan reviewed; CAT scan report as follows. IMPRESSION: 1. Air-fluid levels are identified within the bilateral maxillary sinuses with hemorrhage. Fracture is identified in anterior, inferior, and posterior berger of the bilateral maxillary sinuses. 2. There is a fracture of the superior right orbit with a probable small herniation of CSF fluid with defect. 3. There is a fracture of the right temporal bone with a probable fracture of greater wing of the right sphenoid. There is small amount of extra-axial hemorrhage adjacent to this fracture. There is minimal . 4. There is a fracture of the left anterior nasal bone with angulation of the nasal bridge. 5. There is a hyperdense contusion again visualized within the inferior right frontal lobe of the brain. 6. There is soft tissue swelling, hematoma of the right frontal scalp as well as preseptal and periorbital region. Small foci of gas were seen within the patient's soft tissues. 7. Fractures identified of the bilateral inferior orbital berger. There is abnormal morphology and suspected fracture of the lateral orbital berger as well. Tiny foci of gases identified within the right orbit. 8. Paranasal sinus diseases as noted above. ASSESSMENT AND PLAN: The patient is an 82-year-old male with multiple facial fractures as well as right temporal bone fracture secondary to mechanical fall. I recommend both neurosurgical and ophthalmology consultations for the listed fractures. No signs of increased globe pressure on palpation. Vision is currently normal in the right eye; however, due to on the CT finding of right superior orbital fracture with possible CSF leak, would recommend Ophthalmologic consultation and possible referral to oculoplastics if necessary. I would recommend Neurosurgical consultation for followup of temporal extra-axial hemorrhage and pneumocephalus. No entrapment noted on examination and the orbital floor fractures did not appear to involve more than 50% of the orbital floor; therefore, no surgical intervention is indicated at this time. I discussed with the patient and his family that should he develop an ophthalmo or visual complaints, he should be reevaluated for potential orbital floor fracture repair. The patient states his nasal bone fracture has been longstanding and is not acute in nature. The patient has no hearing or facial nerve deficits from the fall. Facial nerve testing was normal on physical examination. Should the patient develop any hearing or facial movement complaints, he should have reevaluation by maternity floor supervisor. I recommend antibiotic coverage due to the multiple facial fractures and some possibility for intracerebral communication. This was discussed in detail with the patient and his and daughter at the bedside, who are understanding the above plan. This was also discussed in depth with intensive care unit team who will follow up with the appropriate consultations. Thank you for allowing us to participate in this patient's care. Nacho Alexander DO
[2017-06-05 07:40] LABS: BASO # 0.03 K/mm3 (0.0-2.0); BASO % 0.4 % (0.0-3.0); EOS # 0.1 (0.0-0.7); EOS % 0.7 % (1.5-5.0); GRAN # 6.03 (1.4-6.5); GRAN % 73.7 % (50.0-68.0); HEMATOCRIT 37.5 % (42.0-52.0); LYMPH # 1.3 (1.2-3.4); LYMPH % 16.4 % (22.0-35.0); MEAN CELL VOLUME 85.8 fl (80.0-105.0); MEAN CORPUSCULAR HEMOGLOBIN 28.8 pg (25.0-35.0); MEAN CORPUSCULAR HGB CONC 33.6 g/dl (31.0-37.0); MEAN PLATELET VOLUME 10.3 fl (7.0-11.0); MONO # 0.7 (0.1-0.6); MONO % 8.8 % (1.0-6.0); RED CELL DISTRIBUTION WIDTH 14.1 % (11.5-14.5); WHITE BLOOD COUNT 8.2 10^3/ul (4.5-11.0)
[2017-06-05 07:49] LABS: ALB/GLOB RATIO 1.2 (1.1-1.8); ALKALINE PHOSPHATASE 69 U/L (38-126); ALT/SGPT 36 U/L (7-56); AST/SGOT 27 U/L (17-59); BILIRUBIN,TOTAL 1.1 mg/dL (0.2-1.3); BLOOD UREA NITROGEN 27 mg/dL (7-21); CALCIUM 9.1 mg/dL (8.4-10.5); CARBON DIOXIDE 25 mmol/L (21-33); CHLORIDE 103 mmol/L (98-107); GFR AFRICAN-AMERICAN > 60; GLUCOSE,RANDOM 194 mg/dL (70-110); POTASSIUM 4.1 mmol/L (3.6-5.0); SODIUM 137 mmol/L (132-148); TOTAL PROTEIN 6.7 g/dL (5.8-8.3)
[2017-06-05] MEDS: Phenylephrine 10% Opht (5 ml) OU SCH ×2 (07:56→07:57)
--- NOTE | 2017-06-05 08:16 | CON ---
DATE: 06/04/2017 HISTORY OF PRESENT ILLNESS: An 82-year-old white male, history of hypertension and hyperlipidemia, non-insulin diabetic, cardiac artery disease, two stents, had a fall down concrete steps at home. Had no loss of consciousness. Arrived to the emergency room, awake, alert and oriented. He did not have syncopal episode. He slept. No other complaints at this time. He had a CT of the head in the emergency room last night showing two small right frontal contusions. Few dots of intracranial air on the right side. A repeat CT this morning showing that the air appears to be gone. There is stable size hemorrhages in the right frontal lobe with no change from last night. SOCIAL HISTORY: He lives at home with his . He does not smoke or drink. REVIEW OF SYSTEMS: Noncontributory. Reviewed from the chart. PHYSICAL EXAMINATION: He seems fine and fully awake, alert and oriented, cooperative. Cranial nerves are intact. He has multiple bruises and ecchymoses around his face and eyes. His pupils are equal. His EOMs are full. His face is symmetric. He has good strength. No sensory deficits. No reflex changes. His tongue is midline. IMPRESSION: At this point, my diagnosis and impression is traumatic intracranial hemorrhage, stable. PLAN: At this point, there is no indication for any neurosurgical intervention. He may be transferred from the ICU at any time. Observed for 24 more hours. If there is no change, he may be discharged. If there is any change in his neurologic status, please feel free to consult. Gustavo Cook MD
--- NOTE | 2017-06-05 08:25 | PN ---
DATE: 06/05/2017 SUBJECTIVE: The patient has no complaints of any chest pain or shortness of breath. No headaches or dizziness. PHYSICAL EXAMINATION VITAL SIGNS: Temperature is 97.3, pulse of 64, blood pressure 120/51. HEENT: Right bilateral ecchymotic areas, right-sided orbital area with periorbital edema. GENERAL: The patient is lying in bed, flat, comfortable. HEENT: No oral lesion. Anicteric sclerae. Moist mucosa. NECK: No JVD, adenopathy, or thyromegaly. CARDIOVASCULAR: S1 and S2, regular. No murmurs, rubs, or gallops. LUNGS: Clear to auscultation bilaterally. No wheeze, rales, or rhonchi. ABDOMEN: Bowel sounds are positive, soft, nontender and nondistended. EXTREMITIES: No cyanosis, clubbing or edema. LABORATORY DATA: No new labs. Repeat CT of the head done shows stable head CT with two frontal contusions is unchanged in volume, remaining 1 cm or smaller, right temporal bone fracture. ASSESSMENT: 1. Right temporal bone fracture. 2. Maxillary sinus fracture, bilateral. 3. Superior right orbit fracture with small herniation of cerebrospinal fluid. 4. Fracture of the left anterior nasal bone. 5. Right frontal hematoma. 6. Fracture of bilateral inferior orbital berger. 7. Coronary artery disease with stent. 8. Dyslipidemia. 9. Hypertension. 10. Diabetes type 2. PLAN: The patient is currently comfortable. He does not complain of any headaches. He said he was able to sleep well yesterday. The patient's facial nerve testing was normal. No facial asymmetry. Tongue is midline. On exam, the patient was seen by ENT and Neurology. I appreciate their input. The patient is on antibiotics with Augmentin. He is on Lipitor for dyslipidemia. The patient is receiving Toprol for his coronary artery disease. An MRI has been ordered. We will get repeat blood work. Eddie Cavanaugh MD
--- NOTE | 2017-06-05 08:38 | CON ---
DATE: HISTORY OF PRESENT ILLNESS: Mr. Rodriguez is an 82-year-old white male admitted to [facility] with orbital fracture. PHYSICAL EXAMINATION: Both eyes show mild cataracts. Extraocular movement is normal. There is slight enophthalmos in the right eye. Fundus exam is normal. ASSESSMENT AND PLAN: My assessment is that Mr. Rodriguez has slight enophthalmos and orbital fracture. He should be evaluated by oculoplastic for possible repair of orbital fracture. Paulo Lowe MD
[2017-06-05] MEDS: Amoxicillin-Clav 875-125 mg Tab PO SCH ×2 (09:22→21:04)
[2017-06-05] MEDS: Metoprolol Succinate 50 mg XL Tab PO SCH (09:23)
[2017-06-05] MEDS ORDERED: Bacitracin 500 Units/gm Oint Foilpak UD ONE (10:36)
[2017-06-05] MEDS ORDERED: Bacitracin Ointment 30 GM TUBE TOP SCH (10:45)
--- NOTE | 2017-06-05 11:14 | CP.CCUPN ---
<Shola Doherty - Last Filed: 06/05/17 11:27> CCU Subjective - Physician Review Subjective (Free Text): Patient seen and examined at bedside. Resting comfortably in bed. No acute overnight events. Patient states headache has improved relative to baseline. Offers no new complaints at this time. Admits to nausea and one bout of nonbloody nonbilious emesis. Denies fever, chills, chest pain, shortness of breath, abdominal pain, diarrhea, constipation, and urinary symptoms. 06/05/17 11:11 CCU Objective - Vital Signs / Intake & Output Vital Signs (Last 4 hours): Vital Signs Pulse Resp Pulse Ox 06/05/17 09:00 67 20 95 06/05/17 08:56 55 L 06/05/17 08:50 54 L 17 100 06/05/17 08:40 48 L 38 H 99 06/05/17 08:30 48 L 18 97 06/05/17 08:20 55 L 20 98 06/05/17 08:10 59 L 19 98 06/05/17 08:00 75 39 H 82 L 06/05/17 07:50 63 30 H 97 06/05/17 07:40 61 17 98 06/05/17 07:30 65 14 99 06/05/17 07:20 69 18 97 Intake and Output (Last 8hrs): Intake & Output 06/04/17 06/05/17 06/05/17 22:59 06:59 14:59 Intake Total 1000 500 Output Total 650 400 Balance 350 100 Intake: IV 520 0 Right Antecubital 520 0 Oral 480 500 Output: Urine 650 400 Urine, Voided 650 400 Other: # Bowel Movements 2 0 - Physical Exam Head: Positive for: Tenderness Pupils: Positive for: PERRL Extroacular Muscles: Positive for: EOMI. Negative for: Gaze Palsy, Entrapment Conjunctiva: Positive for: Normal. Negative for: Injected Mouth: Positive for: Moist Mucous Membranes. Negative for: Dry Pharnyx: Positive for: Normal. Negative for: ERYTHEMA, EXUDATE Nose (External): Positive for: Abrasion. Negative for: Laceration Respiratory/Chest: Positive for: Clear to Auscultation, Good Air Exchange. Negative for: Respiratory Distress, Accessory Muscle Use Cardiovascular: Positive for: Regular Rate and Rhythm, Normal S1, S2 Abdomen: Positive for: Normal Bowel Sounds. Negative for: Tenderness, Distention, Peritoneal Signs Back: Positive for: Normal Inspection. Negative for: CVA Tenderness Upper Extremity: Positive for: Normal Inspection. Negative for: Cyanosis, Edema Lower Extremity: Positive for: Normal Inspection. Negative for: Edema Neurological: Positive for: CN II-XII Intact, Speech Normal Skin: Positive for: Warm, Dry Psychiatric: Positive for: Alert, Oriented x 3, Normal Insight, Normal Concentration - Medications Active Medications: Active Medications Generic Name Dose Route Start Last Admin Trade Name Freq PRN Reason Stop Dose Admin Amoxicillin/Clavulanate Potassium 1 tab 06/04/17 17:00 06/05/17 09:22 Augmentin 875 Mg-125 Mg Tab PO 1 tab Q12 DIANA Administration Protocol Atorvastatin Calcium 20 mg 06/04/17 17:00 06/04/17 17:07 Lipitor PO Not Given DIN DIANA Bacitracin 0 gm 06/06/17 10:00 Bacitracin TOP DAILY DIANA Hydralazine HCl 10 mg 06/04/17 00:32 06/04/17 02:11 Apresoline IVP 10 mg Q6 PRN Administration SBP > 150 Insulin Human Regular 0 units 06/04/17 22:45 06/05/17 06:55 Humulin R High SC 2 units Q4H DIANA Administration Protocol Losartan Potassium 50 mg 06/04/17 10:00 06/05/17 09:23 Cozaar PO 50 mg DAILY DIANA Administration Metoprolol Succinate 50 mg 06/04/17 10:00 06/05/17 09:23 Toprol Xl PO 50 mg DAILY DIANA Administration Ondansetron HCl 4 mg 06/04/17 02:00 06/04/17 13:15 Zofran Inj IVP 4 mg Q4H PRN Administration Nausea/Vomiting - Patient Studies Lab Studies: Lab Studies 06/05/17 06/05/17 06/05/17 Range/Units 07:27 07:00 07:00 WBC 8.2 D (4.5-11.0) 10^3/ul RBC 4.37 (3.5-6.1) 10^6/uL Hgb 12.6 L (14.0-18.0) g/dL Hct 37.5 L (42.0-52.0) % MCV 85.8 (80.0-105.0) fl MCH 28.8 (25.0-35.0) pg MCHC 33.6 (31.0-37.0) g/dl RDW 14.1 (11.5-14.5) % Plt Count 193 (120.0-450.0) 10^3/uL MPV 10.3 (7.0-11.0) fl Gran % 73.7 H (50.0-68.0) % Lymph % (Auto) 16.4 L (22.0-35.0) % Marion % (Auto) 8.8 H (1.0-6.0) % Eos % (Auto) 0.7 L (1.5-5.0) % Baso % (Auto) 0.4 (0.0-3.0) % Gran # 6.03 (1.4-6.5) Lymph # 1.3 (1.2-3.4) Marion # 0.7 H (0.1-0.6) Eos # 0.1 (0.0-0.7) Baso # 0.03 (0.0-2.0) K/mm3 Sodium 137 (132-148) mmol/L Potassium 4.1 (3.6-5.0) mmol/L Chloride 103 (98-107) mmol/L Carbon Dioxide 25 (21-33) mmol/L Anion Gap 13 (10-20) BUN 27 H (7-21) mg/dL Creatinine 0.9 (0.8-1.5) mg/dL Est GFR ( Amer) > 60 Est GFR (Non-Af Amer) > 60 POC Glucose (mg/dL) 192 H (65-110) mg/dL Random Glucose 194 H (70-110) mg/dL Calcium 9.1 (8.4-10.5) mg/dL Total Bilirubin 1.1 (0.2-1.3) mg/dL AST 27 (17-59) U/L ALT 36 (7-56) U/L Alkaline Phosphatase 69 (38-126) U/L Total Protein 6.7 (5.8-8.3) g/dL Albumin 3.7 (3.0-4.8) g/dL Globulin 3.0 gm/dL Albumin/Globulin Ratio 1.2 (1.1-1.8) 06/05/17 06/05/1717 Range/Units 06:46 04:27 00:18 WBC (4.5-11.0) 10^3/ul RBC (3.5-6.1) 10^6/uL Hgb (14.0-18.0) g/dL Hct (42.0-52.0) % MCV (80.0-105.0) fl MCH (25.0-35.0) pg MCHC (31.0-37.0) g/dl RDW (11.5-14.5) % Plt Count (120.0-450.0) 10^3/uL MPV (7.0-11.0) fl Gran % (50.0-68.0) % Lymph % (Auto) (22.0-35.0) % Marion % (Auto) (1.0-6.0) % Eos % (Auto) (1.5-5.0) % Baso % (Auto) (0.0-3.0) % Gran # (1.4-6.5) Lymph # (1.2-3.4) Marion # (0.1-0.6) Eos # (0.0-0.7) Baso # (0.0-2.0) K/mm3 Sodium (132-148) mmol/L Potassium (3.6-5.0) mmol/L Chloride (98-107) mmol/L Carbon Dioxide (21-33) mmol/L Anion Gap (10-20) BUN (7-21) mg/dL Creatinine (0.8-1.5) mg/dL Est GFR ( Amer) Est GFR (Non-Af Amer) POC Glucose (mg/dL) 156 H 197 H 196 H (65-110) mg/dL Random Glucose (70-110) mg/dL Calcium (8.4-10.5) mg/dL Total Bilirubin (0.2-1.3) mg/dL AST (17-59) U/L ALT (7-56) U/L Alkaline Phosphatase (38-126) U/L Total Protein (5.8-8.3) g/dL Albumin (3.0-4.8) g/dL Globulin gm/dL Albumin/Globulin Ratio (1.1-1.8) 06/04/17 06/04/17 06/04/17 Range/Units 19:43 16:51 14:31 WBC (4.5-11.0) 10^3/ul RBC (3.5-6.1) 10^6/uL Hgb (14.0-18.0) g/dL Hct (42.0-52.0) % MCV (80.0-105.0) fl MCH (25.0-35.0) pg MCHC (31.0-37.0) g/dl RDW (11.5-14.5) % Plt Count (120.0-450.0) 10^3/uL MPV (7.0-11.0) fl Gran % (50.0-68.0) % Lymph % (Auto) (22.0-35.0) % Marion % (Auto) (1.0-6.0) % Eos % (Auto) (1.5-5.0) % Baso % (Auto) (0.0-3.0) % Gran # (1.4-6.5) Lymph # (1.2-3.4) Marion # (0.1-0.6) Eos # (0.0-0.7) Baso # (0.0-2.0) K/mm3 Sodium (132-148) mmol/L Potassium (3.6-5.0) mmol/L Chloride (98-107) mmol/L Carbon Dioxide (21-33) mmol/L Anion Gap (10-20) BUN (7-21) mg/dL Creatinine (0.8-1.5) mg/dL Est GFR ( Amer) Est GFR (Non-Af Amer) POC Glucose (mg/dL) 247 H 185 H 240 H (65-110) mg/dL Random Glucose (70-110) mg/dL Calcium (8.4-10.5) mg/dL Total Bilirubin (0.2-1.3) mg/dL AST (17-59) U/L ALT (7-56) U/L Alkaline Phosphatase (38-126) U/L Total Protein (5.8-8.3) g/dL Albumin (3.0-4.8) g/dL Globulin gm/dL Albumin/Globulin Ratio (1.1-1.8) 06/04/17 Range/Units 12:04 WBC (4.5-11.0) 10^3/ul RBC (3.5-6.1) 10^6/uL Hgb (14.0-18.0) g/dL Hct (42.0-52.0) % MCV (80.0-105.0) fl MCH (25.0-35.0) pg MCHC (31.0-37.0) g/dl RDW (11.5-14.5) % Plt Count (120.0-450.0) 10^3/uL MPV (7.0-11.0) fl Gran % (50.0-68.0) % Lymph % (Auto) (22.0-35.0) % Marion % (Auto) (1.0-6.0) % Eos % (Auto) (1.5-5.0) % Baso % (Auto) (0.0-3.0) % Gran # (1.4-6.5) Lymph # (1.2-3.4) Marion # (0.1-0.6) Eos # (0.0-0.7) Baso # (0.0-2.0) K/mm3 Sodium (132-148) mmol/L Potassium (3.6-5.0) mmol/L Chloride (98-107) mmol/L Carbon Dioxide (21-33) mmol/L Anion Gap (10-20) BUN (7-21) mg/dL Creatinine (0.8-1.5) mg/dL Est GFR ( Amer) Est GFR (Non-Af Amer) POC Glucose (mg/dL) 273 H (65-110) mg/dL Random Glucose (70-110) mg/dL Calcium (8.4-10.5) mg/dL Total Bilirubin (0.2-1.3) mg/dL AST (17-59) U/L ALT (7-56) U/L Alkaline Phosphatase (38-126) U/L Total Protein (5.8-8.3) g/dL Albumin (3.0-4.8) g/dL Globulin gm/dL Albumin/Globulin Ratio (1.1-1.8) Laboratory Results - last 24 hr 06/04/17 06/04/17 06/04/17 12:04 14:31 16:51 WBC RBC Hgb Hct MCV MCH MCHC RDW Plt Count MPV Gran % Lymph % (Auto) Marion % (Auto) Eos % (Auto) Baso % (Auto) Gran # Lymph # Marion # Eos # Baso # Sodium Potassium Chloride Carbon Dioxide Anion Gap BUN Creatinine Est GFR ( Amer) Est GFR (Non-Af Amer) POC Glucose (mg/dL) 273 H 240 H 185 H Random Glucose Calcium Total Bilirubin AST ALT Alkaline Phosphatase Total Protein Albumin Globulin Albumin/Globulin Ratio 06/04/17 06/05/17 06/05/17 19:43 00:18 04:27 WBC RBC Hgb Hct MCV MCH MCHC RDW Plt Count MPV Gran % Lymph % (Auto) Marion % (Auto) Eos % (Auto) Baso % (Auto) Gran # Lymph # Marion # Eos # Baso # Sodium Potassium Chloride Carbon Dioxide Anion Gap BUN Creatinine Est GFR ( Amer) Est GFR (Non-Af Amer) POC Glucose (mg/dL) 247 H 196 H 197 H Random Glucose Calcium Total Bilirubin AST ALT Alkaline Phosphatase Total Protein Albumin Globulin Albumin/Globulin Ratio 06/05/17 06/05/17 06/05/17 06:46 07:00 07:00 WBC 8.2 D RBC 4.37 Hgb 12.6 L Hct 37.5 L MCV 85.8 MCH 28.8 MCHC 33.6 RDW 14.1 Plt Count 193 MPV 10.3 Gran % 73.7 H Lymph % (Auto) 16.4 L Marion % (Auto) 8.8 H Eos % (Auto) 0.7 L Baso % (Auto) 0.4 Gran # 6.03 Lymph # 1.3 Marion # 0.7 H Eos # 0.1 Baso # 0.03 Sodium 137 Potassium 4.1 Chloride 103 Carbon Dioxide 25 Anion Gap 13 BUN 27 H Creatinine 0.9 Est GFR ( Amer) > 60 Est GFR (Non-Af Amer) > 60 POC Glucose (mg/dL) 156 H Random Glucose 194 H Calcium 9.1 Total Bilirubin 1.1 AST 27 ALT 36 Alkaline Phosphatase 69 Total Protein 6.7 Albumin 3.7 Globulin 3.0 Albumin/Globulin Ratio 1.2 06/05/17 07:27 WBC RBC Hgb Hct MCV MCH MCHC RDW Plt Count MPV Gran % Lymph % (Auto) Marion % (Auto) Eos % (Auto) Baso % (Auto) Gran # Lymph # Marion # Eos # Baso # Sodium Potassium Chloride Carbon Dioxide Anion Gap BUN Creatinine Est GFR ( Amer) Est GFR (Non-Af Amer) POC Glucose (mg/dL) 192 H Random Glucose Calcium Total Bilirubin AST ALT Alkaline Phosphatase Total Protein Albumin Globulin Albumin/Globulin Ratio Fingerstick Blood Sugar Results: 156 Review of Systems - Review of Systems Review of Systems: 12 point review of systems negative except as indicated in HPI Critical Care Progress Note - Nutrition Nutrition: Nutrition Category Date Time Status Heart Healthy Diet [DIET] Diets 06/04/17 Dinner Ordered Assessment/Plan - Assessment and Plan (Free Text) Assessment: This is an 82 yo M with PMH of hypertension, hyperlipidemia, diabetes (not on insulin), and CAD s/p 2 stents (15 years ago) who [place] [facility] [place] concrete steps at home. Admitted to ICU for close monitoring in setting of traumatic fracture and brain contusion from mechanical fall. Plan: Neuro: - AAOx3, following all commands - MRI of brain and orbit/face/neck pending - BP control to prevent worsening bleed - Neurosurgery consulted- no acute surgical intervention needed - ENT consulted for facial fractures- no acute surgical intervention as per resident- follow recs from attending - Ophthalmology consulted- no acute intervention needed at this time - Neuro checks q4 - Meningitis ppx with augmentin Pulm: -oxygenation saturation is well on room air > 92% -lungs clear on auscultation -no need for supplemental O2 Cardio -Hx cardiac stents 15 yrs prior -continue losartan, hydralazine, and hydralazine GI: -c/w heart healthy card consistent diet -Protonix for GI ppx -zofran for nausea Endo: - accuchecks ACHS - ISS - keep patient euglycemic 140-180 Renal: -replete electrolyes as needed -avoid nephrotoxic drugs Heme: -hgb 12.6 at baseline -SCDs for DVT ID: -Meningitis ppx with augmentin Dispo: transfer to tele FEN: heart healthy carb consistent diet Access: Peripheral IV Consults: Neuro, ENT, Neurosurg, Optho Ppx: SCDs for DVT, Protonix for GI ICU team will sign off at this time. Please reconsult if needed. Thank you for the opportunity to participate in the care of this patient. Patient seen, case discussed with, and plan approved by attending physician, Dr. Kimble. . <Tyler Kimble - Last Filed: 06/05/17 15:26> CCU Objective - Vital Signs / Intake & Output Vital Signs (Last 4 hours): Vital Signs Pulse Resp Pulse Ox 06/05/17 14:32 60 06/05/17 14:30 56 L 19 100 06/05/17 14:29 57 L 25 H 06/05/17 13:40 58 L 20 100 06/05/17 13:30 58 L 29 H 99 06/05/17 13:28 60 06/05/17 13:20 56 L 96 06/05/17 13:10 60 28 H 97 06/05/17 13:05 60 06/05/17 13:00 56 L 19 100 06/05/17 12:50 44 L 16 100 06/05/17 12:40 52 L 17 98 06/05/17 12:30 60 22 98 06/05/17 12:20 53 L 22 98 06/05/17 12:10 45 L 18 97 06/05/17 12:00 47 L 18 98 06/05/17 11:50 48 L 17 98 06/05/17 11:40 54 L 20 95 06/05/17 11:30 59 L 16 96 06/05/17 11:20 47 L 22 94 L 06/05/17 11:10 51 L 18 99 Intake and Output (Last 8hrs): Intake & Output 06/05/17 06/05/17 06/05/17 06:59 14:59 22:59 Intake Total 500 Output Total 400 300 Balance 100 -300 Weight 167 lb Intake: IV 0 Right Antecubital 0 Oral 500 Output: Urine 400 300 Urine, Voided 400 300 Other: # Bowel Movements 0 - Medications Active Medications: Active Medications Generic Name Dose Route Start Last Admin Trade Name Freq PRN Reason Stop Dose Admin Amoxicillin/Clavulanate Potassium 1 tab 06/04/17 17:00 06/05/17 09:22 Augmentin 875 Mg-125 Mg Tab PO 1 tab Q12 DIANA Administration Protocol Atorvastatin Calcium 20 mg 06/04/17 17:00 06/04/17 17:07 Lipitor PO Not Given DIN DIANA Bacitracin 0 gm 06/06/17 10:00 Bacitracin TOP DAILY DIANA Hydralazine HCl 10 mg 06/04/17 00:32 06/04/17 02:11 Apresoline IVP 10 mg Q6 PRN Administration SBP > 150 Insulin Human Regular 0 units 06/04/17 22:45 06/05/17 11:39 Humulin R High SC 4 units Q4H DIANA Administration Protocol Losartan Potassium 50 mg 06/04/17 10:00 06/05/17 09:23 Cozaar PO 50 mg DAILY DIANA Administration Metoprolol Succinate 50 mg 06/04/17 10:00 06/05/17 09:23 Toprol Xl PO 50 mg DAILY DIANA Administration Ondansetron HCl 4 mg 06/04/17 02:00 06/04/17 13:15 Zofran Inj IVP 4 mg Q4H PRN Administration Nausea/Vomiting - Patient Studies Lab Studies: Microbiology Studies 06/04/17 02:00 MRSA Culture (Admit) - Final Naris MRSA NOT DETECTED Lab Studies 06/05/17 06/05/17 06/05/17 Range/Units 11:35 07:27 07:00 WBC (4.5-11.0) 10^3/ul RBC (3.5-6.1) 10^6/uL Hgb (14.0-18.0) g/dL Hct (42.0-52.0) % MCV (80.0-105.0) fl MCH (25.0-35.0) pg MCHC (31.0-37.0) g/dl RDW (11.5-14.5) % Plt Count (120.0-450.0) 10^3/uL MPV (7.0-11.0) fl Gran % (50.0-68.0) % Lymph % (Auto) (22.0-35.0) % Marion % (Auto) (1.0-6.0) % Eos % (Auto) (1.5-5.0) % Baso % (Auto) (0.0-3.0) % Gran # (1.4-6.5) Lymph # (1.2-3.4) Marion # (0.1-0.6) Eos # (0.0-0.7) Baso # (0.0-2.0) K/mm3 Sodium 137 (132-148) mmol/L Potassium 4.1 (3.6-5.0) mmol/L Chloride 103 (98-107) mmol/L Carbon Dioxide 25 (21-33) mmol/L Anion Gap 13 (10-20) BUN 27 H (7-21) mg/dL Creatinine 0.9 (0.8-1.5) mg/dL Est GFR ( Amer) > 60 Est GFR (Non-Af Amer) > 60 POC Glucose (mg/dL) 225 H 192 H (65-110) mg/dL Random Glucose 194 H (70-110) mg/dL Calcium 9.1 (8.4-10.5) mg/dL Total Bilirubin 1.1 (0.2-1.3) mg/dL AST 27 (17-59) U/L ALT 36 (7-56) U/L Alkaline Phosphatase 69 (38-126) U/L Total Protein 6.7 (5.8-8.3) g/dL Albumin 3.7 (3.0-4.8) g/dL Globulin 3.0 gm/dL Albumin/Globulin Ratio 1.2 (1.1-1.8) 06/05/17 06/05/17 06/05/17 Range/Units 07:00 06:46 04:27 WBC 8.2 D (4.5-11.0) 10^3/ul RBC 4.37 (3.5-6.1) 10^6/uL Hgb 12.6 L (14.0-18.0) g/dL Hct 37.5 L (42.0-52.0) % MCV 85.8 (80.0-105.0) fl MCH 28.8 (25.0-35.0) pg MCHC 33.6 (31.0-37.0) g/dl RDW 14.1 (11.5-14.5) % Plt Count 193 (120.0-450.0) 10^3/uL MPV 10.3 (7.0-11.0) fl Gran % 73.7 H (50.0-68.0) % Lymph % (Auto) 16.4 L (22.0-35.0) % Marion % (Auto) 8.8 H (1.0-6.0) % Eos % (Auto) 0.7 L (1.5-5.0) % Baso % (Auto) 0.4 (0.0-3.0) % Gran # 6.03 (1.4-6.5) Lymph # 1.3 (1.2-3.4) Marion # 0.7 H (0.1-0.6) Eos # 0.1 (0.0-0.7) Baso # 0.03 (0.0-2.0) K/mm3 Sodium (132-148) mmol/L Potassium (3.6-5.0) mmol/L Chloride (98-107) mmol/L Carbon Dioxide (21-33) mmol/L Anion Gap (10-20) BUN (7-21) mg/dL Creatinine (0.8-1.5) mg/dL Est GFR ( Amer) Est GFR (Non-Af Amer) POC Glucose (mg/dL) 156 H 197 H (65-110) mg/dL Random Glucose (70-110) mg/dL Calcium (8.4-10.5) mg/dL Total Bilirubin (0.2-1.3) mg/dL AST (17-59) U/L ALT (7-56) U/L Alkaline Phosphatase (38-126) U/L Total Protein (5.8-8.3) g/dL Albumin (3.0-4.8) g/dL Globulin gm/dL Albumin/Globulin Ratio (1.1-1.8) 06/05/17 06/04/17 06/04/17 Range/Units 00:18 19:43 16:51 WBC (4.5-11.0) 10^3/ul RBC (3.5-6.1) 10^6/uL Hgb (14.0-18.0) g/dL Hct (42.0-52.0) % MCV (80.0-105.0) fl MCH (25.0-35.0) pg MCHC (31.0-37.0) g/dl RDW (11.5-14.5) % Plt Count (120.0-450.0) 10^3/uL MPV (7.0-11.0) fl Gran % (50.0-68.0) % Lymph % (Auto) (22.0-35.0) % Marion % (Auto) (1.0-6.0) % Eos % (Auto) (1.5-5.0) % Baso % (Auto) (0.0-3.0) % Gran # (1.4-6.5) Lymph # (1.2-3.4) Marion # (0.1-0.6) Eos # (0.0-0.7) Baso # (0.0-2.0) K/mm3 Sodium (132-148) mmol/L Potassium (3.6-5.0) mmol/L Chloride (98-107) mmol/L Carbon Dioxide (21-33) mmol/L Anion Gap (10-20) BUN (7-21) mg/dL Creatinine (0.8-1.5) mg/dL Est GFR ( Amer) Est GFR (Non-Af Amer) POC Glucose (mg/dL) 196 H 247 H 185 H (65-110) mg/dL Random Glucose (70-110) mg/dL Calcium (8.4-10.5) mg/dL Total Bilirubin (0.2-1.3) mg/dL AST (17-59) U/L ALT (7-56) U/L Alkaline Phosphatase (38-126) U/L Total Protein (5.8-8.3) g/dL Albumin (3.0-4.8) g/dL Globulin gm/dL Albumin/Globulin Ratio (1.1-1.8) //17 Range/Units 14:31 WBC (4.5-11.0) 10^3/ul RBC (3.5-6.1) 10^6/uL Hgb (14.0-18.0) g/dL Hct (42.0-52.0) % MCV (80.0-105.0) fl MCH (25.0-35.0) pg MCHC (31.0-37.0) g/dl RDW (11.5-14.5) % Plt Count (120.0-450.0) 10^3/uL MPV (7.0-11.0) fl Gran % (50.0-68.0) % Lymph % (Auto) (22.0-35.0) % Marion % (Auto) (1.0-6.0) % Eos % (Auto) (1.5-5.0) % Baso % (Auto) (0.0-3.0) % Gran # (1.4-6.5) Lymph # (1.2-3.4) Marion # (0.1-0.6) Eos # (0.0-0.7) Baso # (0.0-2.0) K/mm3 Sodium (132-148) mmol/L Potassium (3.6-5.0) mmol/L Chloride (98-107) mmol/L Carbon Dioxide (21-33) mmol/L Anion Gap (10-20) BUN (7-21) mg/dL Creatinine (0.8-1.5) mg/dL Est GFR ( Amer) Est GFR (Non-Af Amer) POC Glucose (mg/dL) 240 H (65-110) mg/dL Random Glucose (70-110) mg/dL Calcium (8.4-10.5) mg/dL Total Bilirubin (0.2-1.3) mg/dL AST (17-59) U/L ALT (7-56) U/L Alkaline Phosphatase (38-126) U/L Total Protein (5.8-8.3) g/dL Albumin (3.0-4.8) g/dL Globulin gm/dL Albumin/Globulin Ratio (1.1-1.8) Laboratory Results - last 24 hr 06/04/17 06/04/17 06/04/17 14:31 16:51 19:43 WBC RBC Hgb Hct MCV MCH MCHC RDW Plt Count MPV Gran % Lymph % (Auto) Marion % (Auto) Eos % (Auto) Baso % (Auto) Gran # Lymph # Marion # Eos # Baso # Sodium Potassium Chloride Carbon Dioxide Anion Gap BUN Creatinine Est GFR ( Amer) Est GFR (Non-Af Amer) POC Glucose (mg/dL) 240 H 185 H 247 H Random Glucose Calcium Total Bilirubin AST ALT Alkaline Phosphatase Total Protein Albumin Globulin Albumin/Globulin Ratio 06/05/17 06/05/17 06/05/17 00:18 04:27 06:46 WBC RBC Hgb Hct MCV MCH MCHC RDW Plt Count MPV Gran % Lymph % (Auto) Marion % (Auto) Eos % (Auto) Baso % (Auto) Gran # Lymph # Marion # Eos # Baso # Sodium Potassium Chloride Carbon Dioxide Anion Gap BUN Creatinine Est GFR ( Amer) Est GFR (Non-Af Amer) POC Glucose (mg/dL) 196 H 197 H 156 H Random Glucose Calcium Total Bilirubin AST ALT Alkaline Phosphatase Total Protein Albumin Globulin Albumin/Globulin Ratio 06/05/17 06/05/17 06/05/17 07:00 07:00 07:27 WBC 8.2 D RBC 4.37 Hgb 12.6 L Hct 37.5 L MCV 85.8 MCH 28.8 MCHC 33.6 RDW 14.1 Plt Count 193 MPV 10.3 Gran % 73.7 H Lymph % (Auto) 16.4 L Marion % (Auto) 8.8 H Eos % (Auto) 0.7 L Baso % (Auto) 0.4 Gran # 6.03 Lymph # 1.3 Marion # 0.7 H Eos # 0.1 Baso # 0.03 Sodium 137 Potassium 4.1 Chloride 103 Carbon Dioxide 25 Anion Gap 13 BUN 27 H Creatinine 0.9 Est GFR ( Amer) > 60 Est GFR (Non-Af Amer) > 60 POC Glucose (mg/dL) 192 H Random Glucose 194 H Calcium 9.1 Total Bilirubin 1.1 AST 27 ALT 36 Alkaline Phosphatase 69 Total Protein 6.7 Albumin 3.7 Globulin 3.0 Albumin/Globulin Ratio 1.2 06/05/17 11:35 WBC RBC Hgb Hct MCV MCH MCHC RDW Plt Count MPV Gran % Lymph % (Auto) Marion % (Auto) Eos % (Auto) Baso % (Auto) Gran # Lymph # Marion # Eos # Baso # Sodium Potassium Chloride Carbon Dioxide Anion Gap BUN Creatinine Est GFR ( Amer) Est GFR (Non-Af Amer) POC Glucose (mg/dL) 225 H Random Glucose Calcium Total Bilirubin AST ALT Alkaline Phosphatase Total Protein Albumin Globulin Albumin/Globulin Ratio Critical Care Progress Note - Nutrition Nutrition: Nutrition Category Date Time Status Heart Healthy Diet [DIET] Diets 06/04/17 Dinner Ordered Attending/Attestation - Attestation I have personally seen and examined this patient.: Yes I have fully participated in the care of the patient.: Yes I have reviewed all pertinent clinical information: Yes Notes (Text): 06/05/17 15:21 82 yo male with traumatic facial bones fractures, orbital fracture and brain contusion, MRI brain and faciomaxillary area done--no CSF leak, tiny protrusion of meninges+/-brain parenchyma through the fracture-->discussed with Dr. Pantoja : nothing to be done from his perspective. Ophthalmology consult appreciated, discussed with Dr. Ellis over the phone is well-->after discharge from the hospital should be evalauted by oculoplastic surgery service, no emergent, urgent or immediate surgery/repair indicated. ENT: discussed with Dr. Alexander over the phone-->no immediate surgical repair. Patient is alert and oriented, protecting airways, eating, hemodynamically stable-->ok to downgrade to [facility]. Discussed with PMD. ccm time 40 min
--- NOTE | 2017-06-05 13:12 | PN ---
DATE: SUBJECTIVE: The patient is lying on the bed, in no acute distress. Denies having any headache or dizziness. Denies any weakness in one arm or one leg. PHYSICAL EXAMINATION: VITAL SIGNS: His blood pressure is 134/84, heart rate is 61 per minute, breathing at the rate of 16 per minute, and temperature is 97.3 degrees Fahrenheit. HEENT: Head is normocephalic. There are bilateral periorbital ecchymosis. NECK: Supple. LUNGS: Clear. CARDIOVASCULAR SYSTEM: S1 and S2 audible. No murmurs. ABDOMEN: Soft and nontender. Bowel sounds are present. NEUROLOGIC: Mental status: The patient is awake, alert and oriented to time, place and person. Speech is fluent. Naming and repetition is normal. Memory and cognition are intact. Cranial nerve exam: Pupils are 3 mm bilaterally reactive to light. Visual jones are full. Extraocular movements are intact. There is no facial asymmetry. Palate is upgoing bilaterally and tongue is midline. Motor Examination: Tone is normal. Power is 4 to 5/5 all over. Plantars are downgoing bilaterally. LABORATORY DATA: Reviewed; EEG, which is normal. IMPRESSION: Status post fall with brain contusion, basal skull fracture and orbital fracture. RECOMMENDATIONS: 1. The patient has shown no signs of neurologic deterioration. 2. The patient may have Tylenol p.r.n. if he complains of headaches. 3. The patient may be moved out of the ICU from neurologic standpoint. 4. The patient to have physical therapy for gait imbalance. 5. Please continue other treatment and supportive care. Thank you for the opportunity to participate in the care of this patient. Escobar Negrete MD
--- NOTE | 2017-06-05 14:54 | MRI ---
PROCEDURE: MRI BRAIN WITHOUT CONTRAST HISTORY: fall with head trauma COMPARISON: 06/03/[address] TECHNIQUE: Multiplanar, multisequence MR images of the brain were obtained without intravenous contrast enhancement. FINDINGS: HEMORRHAGE: There are 2 small areas of acute hemorrhage in the right frontal lobe with a small amount of surrounding edema. The more cephalad lesion measures 8 x 2 mm. The more inferiorly located lesion measures 5 x 12 mm. These were also demonstrated on the head CT. There are no other areas of hemorrhage DWI: No evidence of an acute or early subacute infarction. BRAIN PARENCHYMA: No mass effect or edema. No atrophy or chronic microvascular ischemic changes. VENTRICLES: Unremarkable. No hydrocephalus. CRANIUM: Unremarkable. ORBITS: Grossly unremarkable. PARANASAL SINUSES/MASTOIDS: There is opacification of the paranasal sinuses VASCULAR SYSTEM: Skull base flow voids intact. OTHER FINDINGS: None. IMPRESSION: Two small separate areas of acute hemorrhage in the right frontal lobe.
--- NOTE | 2017-06-05 15:09 | MRI ---
PROCEDURE: MRI OF THE BRAIN AND ORBITS WITHOUT CONTRAST HISTORY: traumatic fall, possible orbital CSF herniation COMPARISON: None. TECHNIQUE: Multiplanar, multisequence MR images of the brain and orbits were obtained without contrast enhancement. FINDINGS: ORBITS: Globes, extraocular muscles, optic nerves and retrobulbar fat are unremarkable. No intraorbital mass or infectious/inflammatory changes. PERIORBITAL SPACE: Unremarkable. SINUSES: The multiple facial fractures seen on yesterday's CT are not visible on MRI. There is opacification of the paranasal sinuses. BRAIN: There is a small fracture defect in the superior right orbit. There is herniation of adjacent meninges and possibly herniation of brain parenchyma. The defect is small measuring 3.5 mm in width. There is no evidence of CSF accumulation in the orbit. The findings are best seen on coronal image 31 series 10. OTHER FINDINGS: None. IMPRESSION: There is a small fracture defect in the superior right orbit. There is herniation of adjacent meninges and possibly herniation of brain parenchyma. The defect is small measuring 3.5 mm in width. There is no evidence of CSF accumulation in the orbit.
[2017-06-06] MEDS: Insulin Reg-HIGH-Coverage SC SCH ×5 (05:38→23:08)
[2017-06-06 05:58] LABS: HEMATOCRIT 40.3 % (42.0-52.0); MEAN CELL VOLUME 86.3 fl (80.0-105.0); MEAN CORPUSCULAR HEMOGLOBIN 28.7 pg (25.0-35.0); MEAN CORPUSCULAR HGB CONC 33.3 g/dl (31.0-37.0); MEAN PLATELET VOLUME 10.6 fl (7.0-11.0); RED CELL DISTRIBUTION WIDTH 14.2 % (11.5-14.5); WHITE BLOOD COUNT 9.2 10^3/ul (4.5-11.0)
[2017-06-06 06:10] LABS: ALB/GLOB RATIO 1.2 (1.1-1.8); ALKALINE PHOSPHATASE 73 U/L (38-126); ALT/SGPT 38 U/L (7-56); AST/SGOT 26 U/L (17-59); BILIRUBIN,TOTAL 1.2 mg/dL (0.2-1.3); BLOOD UREA NITROGEN 25 mg/dL (7-21); CALCIUM 9.3 mg/dL (8.4-10.5); CARBON DIOXIDE 26 mmol/L (21-33); CHLORIDE 103 mmol/L (98-107); GFR AFRICAN-AMERICAN > 60; GLUCOSE,RANDOM 168 mg/dL (70-110); POTASSIUM 4.7 mmol/L (3.6-5.0); SODIUM 139 mmol/L (132-148); TOTAL PROTEIN 6.8 g/dL (5.8-8.3)
[2017-06-06] MEDS: Bacitracin Ointment 30 GM TUBE TOP SCH (10:26)
[2017-06-06] MEDS: Metoprolol Succinate 50 mg XL Tab PO SCH (10:27)
[2017-06-06] MEDS: Amoxicillin-Clav 875-125 mg Tab PO SCH ×2 (10:28→23:11)
--- NOTE | 2017-06-06 23:17 | PN ---
DATE: 06/06/2017 HISTORY OF PRESENT ILLNESS: The patient had a fall at home. He tripped and fell. He had fractured skull bones. MRI of the head done today showed small hematoma in the right frontal lobe. He is currently in ICU being monitored. Neurology and Neurosurgery following. Denies any pain. He is complaining of nausea. He is not able to except oral feeds because of nausea. No vomiting. Denies any pain. He has bruising on the face and eyes. No active bleeding. He has history of diabetes mellitus, controlled on current medications,also hypertension, controlled on current medications. is at bedside. PAST MEDICAL HISTORY: Diabetes mellitus type 2, and hypertension. ALLERGIES: NO KNOWN DRUG ALLERGIES. PAST SURGICAL HISTORY: Cardiac stents. FAMILY HISTORY: Noncontributory. PERSONAL HISTORY: Nonsmoker. No history of alcohol abuse. REVIEW OF SYSTEMS: As per HPI. Rest of 12-point review of systems reviewed and negative. PHYSICAL EXAMINATION: GENERAL: Comfortable in bed, in no acute distress. VITAL SIGNS: Temperature 97.8, heart rate is 88 per minute, blood pressure 147/65 and oxygen saturation 98% on room air. HEENT: Multiple bruises on the face, bruises under both eyes. NECK: No lymphadenopathy. CHEST: Air entry present and equal bilateral. No added sounds. CARDIOVASCULAR: S1 and S2 normal. No murmur. No gallop. ABDOMEN: Soft and nontender. No hepatosplenomegaly. EXTREMITIES: No edema. SPINE: Nontender. CENTRAL NERVOUS SYSTEMS: Alert and oriented x3. No focal sensory or motor deficit. LABORATORY DATA: White count 9.2, hemoglobin 13.4, hematocrit 40.3, and platelet 205. Sodium 139, potassium 4.7, creatinine 0.9, and glucose 158. AST 36, ALT 38, and alkaline phosphatase 73. MEDICATIONS: Reviewed. ASSESSMENT AND PLAN: 1. Fall, mechanical. 2. Fractured skull bones. 3. Small right frontal lobe hemorrhage. 4. Dyslipidemia. 5. Hypertension. 6. Diabetes mellitus type 2. 7. anemia. PLAN: He is currently comfortable, being monitored in ICU, followed by Neurology, Neurosurgery. MRI of the brain showed small right frontal lobe hematoma. No pain. We will continue metoprolol, beta-carlos, continue insulin sliding scale, hydralazine, blood pressure controlled with current medication. He is on Augmentin q. 12 hours orally. Complaining of nausea. We will give Zofran round the clock, 4 mg IV q. 8 hours scheduled. Oral intake poor because of nausea. We will continue to follow. Sisi Márquez MD MTDYolanda
[2017-06-07] MEDS: Insulin Reg-HIGH-Coverage SC SCH ×5 (02:45→21:32)
[2017-06-07] MEDS: Amoxicillin-Clav 875-125 mg Tab PO SCH ×2 (09:53→10:00)
[2017-06-07] MEDS: Metoprolol Succinate 50 mg XL Tab PO SCH (09:54)
[2017-06-07] MEDS: Bacitracin Ointment 30 GM TUBE TOP SCH (09:55)
[2017-06-07 10:11] VITALS: O2SAT 97
[2017-06-07] MEDS: levoFLOXacin 500 MG TAB PO SCH (13:34)
--- NOTE | 2017-06-07 20:02 | CP.PCM.PN ---
Subjective - Date & Time of Evaluation Date of Evaluation: 06/07/17 Time of Evaluation: 13:00 - Subjective Subjective: HISTORY OF PRESENT ILLNESS: The patient had a fall at home. He tripped and fell. He had fractured skull bones. MRI of the head done today showed small hematoma in the right frontal lobe. He is currently in ICU being monitored. Neurology and Neurosurgery following. Denies any pain. He is complaining of nausea. He is not able to except oral feeds because of nausea. No vomiting. Denies any pain. He has bruising on the face and eyes. No active bleeding. He has history of diabetes mellitus, controlled on current medications,also hypertension, controlled on current medications. able to tolerate oral feeds. loose stools few times. C-diff one sample negative. PAST MEDICAL HISTORY: Diabetes mellitus type 2, and hypertension. ALLERGIES: NO KNOWN DRUG ALLERGIES. PAST SURGICAL HISTORY: Cardiac stents. FAMILY HISTORY: Noncontributory. PERSONAL HISTORY: Nonsmoker. No history of alcohol abuse. REVIEW OF SYSTEMS: As per HPI. Rest of 12-point review of systems reviewed and negative. PHYSICAL EXAMINATION: GENERAL: Comfortable in bed, in no acute distress. VITAL SIGNS: reviewed. HEENT: Multiple bruises on the face, bruises under both eyes. NECK: No lymphadenopathy. CHEST: Air entry present and equal bilateral. No added sounds. CARDIOVASCULAR: S1 and S2 normal. No murmur. No gallop. ABDOMEN: Soft and nontender. No hepatosplenomegaly. EXTREMITIES: No edema. SPINE: Nontender. CENTRAL NERVOUS SYSTEMS: Alert and oriented x3. No focal sensory or motor deficit. LABORATORY DATA: White count 9.2, hemoglobin 13.4, hematocrit 40.3, and platelet 205. Sodium 139, potassium 4.7, creatinine 0.9, and glucose 158. AST 36, ALT 38, and alkaline phosphatase 73. MEDICATIONS: Reviewed. ASSESSMENT AND PLAN: 1. Fall, mechanical. 2. Fractured skull bones. 3. Small right frontal lobe hemorrhage. 4. Dyslipidemia. 5. Hypertension. 6. Diabetes mellitus type 2. 7. anemia. 8. Diarrhea PLAN: He is currently comfortable, MRI of the brain showed small right frontal lobe hematoma. No pain. We will continue metoprolol, beta-calros, continue insulin sliding scale, hydralazine, blood pressure controlled with current medication. We will give Zofran round the clock, 4 mg IV q. 8 hours scheduled. stool C-diff , 2 more samples. Stop augmentin. Levaquin 500 mg Q daily. Flagyl 500 PO tid. transfer to [facility]. Sisi Márquez MD Objective - Vital Signs/Intake and Output Vital Signs (last 24 hours): Temp Pulse Resp BP Pulse Ox 98 F 77 20 138/54 L 97 06/07/17 12:00 06/07/17 18:20 06/07/17 18:20 06/07/17 18:00 06/07/17 12:00 Intake and Output: 06/07/17 06/08/17 18:59 06:59 Intake Total 860 Balance 860 - Medications Medications: Current Medications Atorvastatin Calcium (Lipitor) 20 mg PO DIN [facility] Last Admin: 06/07/17 16:52 Dose: 20 mg Bacitracin (Bacitracin) 0 gm TOP DAILY [facility] Last Admin: 06/07/17 09:55 Dose: 1 gm Hydralazine HCl (Apresoline) 10 mg IVP Q6 PRN PRN Reason: SBP > 150 Last Admin: 06/04/17 02:11 Dose: 10 mg Insulin Human Regular (Humulin R High) 0 units SC ACHS [facility] PRN Reason: Protocol Last Admin: 06/07/17 16:52 Dose: 2 units Levofloxacin (Levaquin) 500 mg PO DAILY [facility] Last Admin: 06/07/17 13:34 Dose: 500 mg Losartan Potassium (Cozaar) 50 mg PO DAILY [facility] Last Admin: 06/07/17 13:38 Dose: Not Given Metoprolol Succinate (Toprol Xl) 50 mg PO DAILY [facility] Last Admin: 06/07/17 09:54 Dose: Not Given Metronidazole (Flagyl) 500 mg PO Q8 DIANA PRN Reason: Protocol Last Admin: 06/07/17 13:33 Dose: 500 mg Ondansetron HCl (Zofran Inj) 4 mg IVP Q6H [facility] Last Admin: 06/07/17 13:40 Dose: Not Given - Labs Labs: 06/06/17 05:30 06/06/17 05:30
[2017-06-08 00:30] VITALS: RESP 19
--- NOTE | 2017-06-08 08:13 | PN ---
DATE: 06/08/2017 SUBJECTIVE: The patient has no complaints of any chest pain. No shortness of breath. No headaches. PHYSICAL EXAMINATION: VITAL SIGNS: Temperature is 98.1, pulse of 95, blood pressure is 121/74, respiration 19. GENERAL: The patient is lying in bed, flat, comfortable. HEENT: No oral lesion. Anicteric sclerae. Moist mucosa. Periorbital ecchymosis bilaterally. NECK: No JVD, adenopathy, or thyromegaly. CARDIOVASCULAR: S1 and S2, regular. No murmurs, rubs, or gallops. LUNGS: Clear to auscultation bilaterally. No wheeze, rales, or rhonchi. ABDOMEN: Bowel sounds are positive, soft, nontender and nondistended. EXTREMITIES: No cyanosis, clubbing or edema. LABORATORY DATA: White count of 9.2, hemoglobin 13.4, and creatinine is 0.9. IMAGING DATA: Brain MRI done shows 2 small separate areas of acute hemorrhage in the right frontal lobe. Small fracture defect in the superior right orbit. There is herniation of adjacent meninges and possibly herniation of brain parenchyma. The defect is small measuring 3.5 mm in width. There is no evidence of CSF accumulation in orbits. ASSESSMENT: 1. Small fracture defect in the superior right orbit with Herniation of adjacent meninges and possible herniation of brain parenchyma measuring 3.5 mm. 2. Right temporal bone fracture. 3. Maxillary sinus fracture, bilateral. 4. Fracture of the left anterior nasal bone. 5. Right frontal hematoma. 6. Fracture of bilateral inferior orbital berger. 7. Coronary artery disease with stent history. 8. Dyslipidemia. 9. Hypertension. 10. Diabetes type 2. PLAN: The patient is currently comfortable. He has C. diff that is pending. He is on Flagyl. He is on Levaquin as well. He is going to continue with Lipitor for dyslipidemia. He is on metoprolol for his coronary artery disease. His aspirin has been on hold because of trauma. He is on losartan for his blood pressure. He is on a heart healthy diet. He is getting physical therapy. It is advised that he goes home with services. Will get outpatient PT. He is also going to follow up with Dr. Jamison Biswas in [place], [place]. His number is #[phone]. This is for his orthoplastic surgery. He is also going to follow with Neurosurgery. Eddie Cavanaugh MD
[2017-06-08] MEDS: Insulin Reg-HIGH-Coverage SC SCH ×2 (08:43→12:17)
[2017-06-08] MEDS: Metoprolol Succinate 50 mg XL Tab PO SCH (09:40)
[2017-06-08] MEDS: levoFLOXacin 500 MG TAB PO SCH (09:40)
[2017-06-08] MEDS: Bacitracin Ointment 30 GM TUBE TOP SCH (09:45)
[2017-06-08 11:56] VITALS: BP 120/58; PULSE 65; TEMP 97.8
--- NOTE | 2017-06-08 12:31 | PN ---
NEUROLOGY PROGRESS NOTE DATE: SUBJECTIVE: The patient is lying on the bed, in no acute distress. Denies having any headache or dizziness. PHYSICAL EXAMINATION: VITAL SIGNS: His blood pressure is 118/66, heart rate is 99 per minute, breathing at the rate of 16 per minute, temperature 98.1 degrees Fahrenheit. HEENT: Head is normocephalic. Bilateral periorbital ecchymoses noted. NECK: Supple. There are no carotid bruits. LUNGS: Clear. CARDIOVASCULAR: S1 and S2 audible. No murmurs. ABDOMEN: Soft, nontender. Bowel sounds present. NEUROLOGIC: Mental status: The patient is awake, alert and oriented to time, place, and person. Speech is fluent. Naming and repetition normal. Memory and cognition are intact. Cranial nerve examination: Pupils 4 mm bilaterally reactive to light. Visual jones are full. Extraocular movements are intact. There is no facial asymmetry. Palate is upgoing bilaterally and tongue is midline. Motor examination: Tone is normal. Power is 5/5 bilaterally in all extremities. Plantars are downgoing bilaterally. LABORATORY DATA: Reviewed shows WBC 9.2, hemoglobin 13.4, hematocrit 40.3 and platelets of 205. IMPRESSION: Status post fall with brain contusion. Basal skull fracture and orbital fracture. RECOMMENDATIONS: 1. The patient has no focal neurologic deficits. 2. The patient's headaches are better now. 3. I have recommended the patient go for subacute rehabilitation; however, the patient does not want to go to rehab and wants to go home. 4. The patient is neurologically stable for discharge with outpatient followup. Thank you for the opportunity to participate in the care of this patient. Escobar Negrete MD
== END 2017-06-08 17:05 | disposition home or self-care (01) | DRG 87 ==
LOC: ED 19:52 → ERH 23:58 → CCU 06-04 02:02 → 2RNO 06-07 18:33
PROVIDERS: ADMIT Internal Medicine Nephrology; ATTEND Internal Medicine Nephrology
DX: S06.360A Traumatic hemorrhage of cerebrum, unspecified, without loss of consciousness, initial encounter (principal); D64.9 Anemia, unspecified; E11.9 Type 2 diabetes mellitus without complications; S02.401A Maxillary fracture, unspecified side, initial encounter for closed fracture; I10 Essential (primary) hypertension; S02.81XA Fracture of other specified skull and facial bones, right side, initial encounter for closed fracture; S06.2X0A Diffuse traumatic brain injury without loss of consciousness, initial encounter; I25.10 Atherosclerotic heart disease of native coronary artery without angina pectoris; E78.00 Pure hypercholesterolemia, unspecified; W10.9XXA Fall (on) (from) unspecified stairs and steps, initial encounter; Y92.098 Other place in other non-institutional residence as the place of occurrence of the external cause; Y93.01 Activity, walking, marching and hiking; Y99.9 Unspecified external cause status; Z95.5 Presence of coronary angioplasty implant and graft; Z86.73 Personal history of transient ischemic attack (TIA), and cerebral infarction without residual deficits

== ENCOUNTER 2018-10-25 12:45 | Outpatient (CLI) | payer OTHER | END 2018-10-25 12:46 | disposition home or self-care (01) | LOC: OPLAB 12:45 ==

== ENCOUNTER 2018-11-15 13:12 | Outpatient (CLI) | payer MEDICARE | END 2018-11-15 13:13 | disposition home or self-care (01) | LOC: OPLAB 13:12 ==

== ENCOUNTER 2018-12-06 12:52 | Outpatient (CLI) | payer OTHER | END 2018-12-06 12:53 | disposition home or self-care (01) | LOC: OPLAB 12:52 ==

== ENCOUNTER 2018-12-27 12:40 | Outpatient (CLI) | payer MEDICARE | END 2018-12-27 12:41 | disposition home or self-care (01) | LOC: OPLAB 12:40 ==